=== PATIENT | female | born 1935 | race Caucasian/White ===

== ENCOUNTER 2021-04-03 19:22 | Inpatient (IN) | payer OTHER, MEDICAID, SELFPAY ==
[2021-04-03 20:10] VITALS: BP 217/103; PULSE 92; RESP 20; TEMP 36.8; O2SAT 96; BMI 26.5
--- NOTE | 2021-04-03 20:21 | DI.RAD.S_ITS ---
PROCEDURE: XR HIP W PEL IF DONE LT 2V INDICATIONS: suspected hip fracture TECHNIQUE: AP view of the pelvis and lateral view of the left hip. COMPARISON: None. FINDINGS: Bones: There is a minimally displaced intertrochanteric fracture of the left proximal femur with minimal lateral angulation. Degenerative changes are seen in the included lower lumbar spine with levoconvex curvature. Soft tissues: No suspicious soft tissue calcifications or masses. IMPRESSION: Minimally displaced intertrochanteric fracture of the left proximal femur. Dictated by: Misha Hannon M.D. on 04/03/2021 at 21:20 Approved by: Misha Hannon M.D. on 04/03/2021 at 21:21
--- NOTE | 2021-04-03 20:56 | DI.RAD.S_ITS ---
PROCEDURE: XR CHEST 1V INDICATIONS: pre op TECHNIQUE: One view of the chest was acquired. COMPARISON: None. FINDINGS: Surgical changes and devices: None. Lungs and pleura: Lungs are clear. No pleural effusions or pneumothorax. Mediastinum: Mediastinal contours appear normal. Heart size is normal. Aortic atherosclerotic calcifications are present. Bones and chest wall: No suspicious bony lesions. Overlying soft tissues appear unremarkable. IMPRESSION: No acute cardiopulmonary abnormality. Dictated by: Misha Hannon M.D. on 04/03/2021 at 21:21 Approved by: Misha Hannon M.D. on 04/03/2021 at 21:22
[2021-04-03] MEDS: HYDROMORPHONE 0.5 MG INJ IV (21:16)
[2021-04-03] MEDS: SODIUM CHLORIDE 0.9% 1,000 ML 150 ML IV (21:19)
[2021-04-03 21:20] LABS: Add Manual Diff / Slide Review NO; Basophils Absolute Auto 0 /uL (0-100); Basophils Percent Auto 0.2 % (0-2); Eosinophils Absolute Auto 0 /uL (0-450); Hematocrit 48.3 % (36-46); Hemoglobin 15.6 g/dL (12.0-16.0); Lymphocytes Absolute Auto 400 /uL (1100-4500); Lymphocytes Percent Auto 3.5 % (25-40); Mean Corpuscular HGB Conc 32.3 % (30-36); Mean Corpuscular Hemoglobin 29.4 PG (26-34); Mean Corpuscular Volume 91.1 fL (80-100); Monocytes Absolute Auto 900 /uL (0-900); Monocytes Percent Auto 7.8 % (3-14); Neutrophils Absolute Auto 10300 /uL (1500-7000); Neutrophils Percent Auto 88.5 % (50-75); Platelet Count 158 X10^3/uL (150-400); White Blood Cell Count 11.7 X10^3/uL (4.5-11.0)
[2021-04-03 21:42] LABS: Alanine Aminotransferase 25 IU/L (<35); Albumin 4.7 g/dL (3.5-5.0); Albumin Globulin Ratio 1.6 (1.0-2.8); Alkaline Phosphatase 92 U/L (38-126); Aspartate Aminotransferase 33 IU/L (14-36); Bilirubin Total 0.8 mg/dL (0.2-1.3); Blood Urea Nitrogen 30 mg/dL (7-17); Calcium 9.5 mg/dL (8.4-10.2); Carbon Dioxide 25 mmol/L (22-32); Chloride 106 mmol/L (98-107); Glucose 136 mg/dL (80-110); HEMOLYSIS < 15 (0-50); Potassium 4.5 mmol/L (3.4-5.1); Sodium 140 mmol/L (137-145); Total Protein 7.7 g/dL (6.3-8.2)
--- NOTE | 2021-04-03 22:00 | ED_ITS ---
HPI - Extremity Injury (Lower) General Chief Complaint: Extremity Injury, Lower Stated Complaint: hip pain Time Seen by Provider: 04/03/21 20:55 Source: patient and family Mode of arrival: Wheelchair Limitations: language barrier History of Present Illness HPI Narrative: 85-year-old lady with history of hypertension was picking apples today and ended up falling onto her left hip and presents with left hip pain. S he was able to get off of the ground an into a car and transport herself to the emergency room by private vehicle. She speaks Trinidadian and her granddaughter is acting as machine specialist. She has had no recent fevers cough cold chills. She has no abdominal pain headache recent diarrhea or dysuria. This was not a syncopal episodes and she feels that she has been in her usual state of health recently. Related Data Home Medications Medication Instructions Recorded Confirmed losartan 50 mg tablet 50 mg PO DAILY 04/04/21 04/04/21 Allergies Allergy/AdvReac Type Severity Reaction Status Date / Time No Known Drug Allergies Allergy Verified 04/03/21 20:10 Review of Systems Review of Systems Narrative: Remainder of complete review of systems is otherwise unremarkable except for that included in the HPI. Patient History Surgical History Hx of hernia repair Family History Mother Breast CA Father Medical history unknown Social History household members: family and children Smoking Status: Never smoker Smoking Status: Never smoker Substance Use Type: does not use Exam Narrative Exam Narrative: General: Healthy appearing, in no acute distress. Well- nourished well-developed HEENT: Moist mucous membranes, normal sclera with reactive pupils, Neck: supple Respiratory: Lungs are clear to auscultation, no wheezing no rales no rhonchi. Full and symmetrical air movement Cardiac: Regular rate and rhythm no murmurs no bruits Abdomen: Soft, nontender, good bowel tones, no flank pain Skin: Warm and dry, no rashes, no abrasions or contusions Neurologic: Able to move all extremities left leg is somewhat limited secondary to pain Extremities: well perfused, chronic venous stasis changes minimal edema. Left leg is foreshortened and internally rotated. Neurovascularly intact Psych: Cooperative, appropriate insight and affect Initial Vital Signs Initial Vital Signs: Vital Signs Temperature 98.3 F 04/03/21 20:10 Pulse Rate 92 H 04/03/21 20:10 Respiratory Rate 20 04/03/21 20:10 Blood Pressure 217/103 H 04/03/21 20:10 Pulse Oximetry 96 04/03/21 20:10 Course Orders Ordered: Acetaminophen (Acetaminophen 325 Mg Tablet) 650 mg PO Q6HR PRN PRN Reason: Fever/Mild Pain (1-3) Hydromorphone HCl (Hydromorphone 0.5 Mg Inj) 0.5 mg IV Q15MIN PRN PRN Reason: Pain, Last Admin: 04/03/21 21:16 Dose: 0.5 mg Documented by: CARLEE Sodium Chloride (Normal Saline 0.9%) 1,000 mls @ 100 mls/hr IV CONT [facility] Last Admin: 04/04/21 01:15 Dose: 100 mls/hr Documented by: HOA Morphine Sulfate (Morphine 2 Mg/Ml Inj) 2 mg IV Q3H PRN PRN Reason: Pain, Moderate (4-6) Naloxone HCl (Naloxone 0.4 Mg/Ml Vial) 0.2 mg IV Q2MIN PRN PRN Reason: Opiate Reversal Ondansetron HCl (Ondansetron 4 Mg/2 Ml Inj) 4 mg IV Q8HR PRN PRN Reason: Nausea And Vomiting Discontinued Medications Sodium Chloride (Normal Saline 0.9%) 1,000 mls @ 150 mls/hr IV CONT [facility] Last Admin: 04/03/21 21:19 Dose: 150 mls/hr Documented by: CARLEE Losartan Potassium (Losartan 50 Mg Tablet) 50 mg PO NOW ONE Stop: 04/03/21 23:02 Last Admin: 04/04/21 02:04 Dose: Not Given Documented by: HOA Vital Signs Vital signs: Vital Signs - 8 hr 04/03/21 20:10 Temperature 98.3 F Pulse Rate 92 H Respiratory Rate 20 Blood Pressure 217/103 H Pulse Oximetry 96 MDM - Extremity Injury (Lower) Lab Data Result diagrams: 04/04/21 04:40 04/04/21 04:40 Labs: Lab Results 04/03/21 04/03/21 04/03/21 Range/Units 21:10 21:10 21:10 WBC 11.7 H (4.5-11.0) X10^3/uL RBC 5.30 H (4.0-5.2) X10^6/uL Hgb 15.6 (12.0-16.0) g/dL Hct 48.3 H (36-46) % MCV 91.1 (80-100) fL MCH 29.4 (26-34) PG MCHC 32.3 (30-36) % RDW 14.0 (11.6-14.8) % Plt Count 158 (150-400) X10^3/uL Neut % (Auto) 88.5 H (50-75) % Lymph % (Auto) 3.5 L (25-40) % [place] % (Auto) 7.8 (3-14) % Eos % (Auto) 0.0 L (2-4) % Baso % (Auto) 0.2 (0-2) % Neut # (Auto) 76359 H (9047-3483) /uL Lymph # (Auto) 400 L (7820-1963) /uL [place] # (Auto) 900 (0-900) /uL Eos # (Auto) 0 (0-450) /uL Baso # (Auto) 0 (0-100) /uL Sodium 140 (137-145) mmol/L Potassium 4.5 (3.4-5.1) mmol/L Chloride 106 (98-107) mmol/L Carbon Dioxide 25 (22-32) mmol/L BUN 30 H (7-17) mg/dL Creatinine 1.00 (0.52-1.04) mg/dL Estimated GFR 53.0 L (>60) mL/min BUN/Creatinine Ratio 30.0 H (6-22) Glucose 136 H (80-110) mg/dL Calcium 9.5 (8.4-10.2) mg/dL Total Bilirubin 0.8 (0.2-1.3) mg/dL AST 33 (14-36) IU/L ALT 25 (<35) IU/L Alkaline Phosphatase 92 (38-126) U/L Total Creatine Kinase 60 (30-135) U/L CK-MB (CK-2) TNP CK-MB (CK-2) Rel Index TNP Troponin I < 0.012 (0.01-0.034) ng/mL Total Protein 7.7 (6.3-8.2) g/dL Albumin 4.7 (3.5-5.0) g/dL Globulin 3.0 (1.7-4.1) g/dL Albumin/Globulin Ratio 1.6 (1.0-2.8) SARS-CoV-2 (PCR) (Negative) 04/03/21 Range/Units 21:15 WBC (4.5-11.0) X10^3/uL RBC (4.0-5.2) X10^6/uL Hgb (12.0-16.0) g/dL Hct (36-46) % MCV (80-100) fL MCH (26-34) PG MCHC (30-36) % RDW (11.6-14.8) % Plt Count (150-400) X10^3/uL Neut % (Auto) (50-75) % Lymph % (Auto) (25-40) % [place] % (Auto) (3-14) % Eos % (Auto) (2-4) % Baso % (Auto) (0-2) % Neut # (Auto) (2857-4652) /uL Lymph # (Auto) (0398-1077) /uL [place] # (Auto) (0-900) /uL Eos # (Auto) (0-450) /uL Baso # (Auto) (0-100) /uL Sodium (137-145) mmol/L Potassium (3.4-5.1) mmol/L Chloride (98-107) mmol/L Carbon Dioxide (22-32) mmol/L BUN (7-17) mg/dL Creatinine (0.52-1.04) mg/dL Estimated GFR (>60) mL/min BUN/Creatinine Ratio (6-22) Glucose (80-110) mg/dL Calcium (8.4-10.2) mg/dL Total Bilirubin (0.2-1.3) mg/dL AST (14-36) IU/L ALT (<35) IU/L Alkaline Phosphatase (38-126) U/L Total Creatine Kinase (30-135) U/L CK-MB (CK-2) CK-MB (CK-2) Rel Index Troponin I (0.01-0.034) ng/mL Total Protein (6.3-8.2) g/dL Albumin (3.5-5.0) g/dL Globulin (1.7-4.1) g/dL Albumin/Globulin Ratio (1.0-2.8) SARS-CoV-2 (PCR) Negative (Negative) Imaging Data XR hip: Radiologist's Impression: FINDINGS: Bones: There is a minimally displaced intertrochanteric fracture of the left proximal femur with minimal lateral angulation. Degenerative changes are seen in the included lower lumbar spine with levoconvex curvature. Soft tissues: No suspicious soft tissue calcifications or masses. IMPRESSION: Minimally displaced intertrochanteric fracture of the left proximal femur. Dictated by: Misha Hannon M.D. on 04/03/2021 at 21:20 MDM Narrative Medical decision making narrative: 85-year-old woman with a left intratrochanteric fracture will need admission by the hospitalist service. Reviewed care with Dr. Bhatt, orthopedic surgeon. At 10:00 p.m.. She requests that she is NPO after midnight and they will plan surgical intervention tomorrow. 1030pm Sophia Bruner, hospitalist SARINA is down to evaluate. Discharge Plan Departure Patient Disposition: Admitted As Inpatient Clinical Impression: Closed hip fracture Qualifiers: Encounter type: initial encounter Laterality: left Qualified Code(s): S72.002A - Fracture of unspecified part of neck of left femur, initial encounter for closed fracture Fall Qualifiers: Encounter type: initial encounter Qualified Code(s): W19.XXXA - Unspecified fall, initial encounter Admit Date/Time: 04/03/21 22:29 Admit Provider: Lucie Bruner
[2021-04-03 22:12] LABS: COVID19 - ADMIT (NP swab/PCR) Negative (Negative)
--- NOTE | 2021-04-03 22:53 | PM.HP.1 ---
History of Present Illness History of Present Illness Date Patient Seen: 04/03/21 Time Patient Seen: 22:45 Chief complaint: hip pain Narrative: Shiraz Vizcaino is an 85-year-old Macedonian only speaking female with essential hypertension and was apparently in her usual state of health when she fell outside in her yard. Her granddaughter Vida Flores is translating for the patient. She stated that the patient was standing on a grassy slope and was reaching for an apple off of 1 of the trees and the yard and apparently fell. She did not hit her head nor her ribs. She denies dizziness, swallowing problems, headaches, chest pain, nausea and vomiting, diarrhea or constipation. She does endorse having chronic urinary urgency, tingling in her hands and feet and bed circulation of her legs causing swelling occasionally. In the emergency department she was found to have a left-sided closed intertrochanteric nondisplaced fracture. Chest x-ray was negative. Patient is afebrile, blood pressure 217/103, heart rate 92, respiratory rate 20, oxygen saturation 96% on room air, she weighs 68 kg with a BMI of 26.6. Her WBC is slightly elevated at 11.7, RBC 5.3, hemoglobin 15.6, hematocrit 48.3, platelet count 158, sodium is 140, potassium 4.5, chloride 106, CO2 25, BUN 30, creatinine 1.0 with a GFR of 53, glucose 136, liver enzymes are within normal limits, COVID 19 PCR is negative. I have ordered a troponin and a UA both of which are pending. Patient History Surgical History (Updated 04/03/21 @ 23:27 by SARINA Goddard) Hx of hernia repair Family & Social History Family History (Updated 04/03/21 @ 23:29 by SARINA Goddard) Mother Breast CA Father Medical history unknown Safety & Behavioral: Feels Safe in Current Yes Environment Been Physically Hurt or No Threatened By a Person Tobacco & Substance use: Smoking Status Never smoker Substance Use Type does not use Meds Home Medications and Allergies Allergies Allergy/AdvReac Type Severity Reaction Status Date / Time No Known Drug Allergies Allergy Verified 04/03/21 20:10 Review of Systems Review of Systems ROS: Yes All systems reviewed with the patient and are negative except as otherwise documented Exam Vital Signs (past 8 hours): - 04/03/21 20:10 Temperature 98.3 F Pulse Rate 92 H Respiratory Rate 20 Blood Pressure 217/103 H Pulse Oximetry 96 Oxygen Delivery Method Room Air Narrative Exam Narrative: Gen: Alert, oriented, well-developed 85 y.o. female, busily chatting in Macedonian to a relative on the phone HEENT: normocephalic, atraumatic, conjunctiva clear, sclera non-icteric, oral mucosa pink and moist Neck: supple, full ROM, no JVD, trachea is midline Resp: Lungs CTA, non-labored breathing CV: RRR, no murmur or rubs Abd: soft, non-tender, normoactive BTs Skin: spider varicosities on both legs, no sweling and in fact appears dry, no lesions or rashes, dry and intact Neuro: Alert and oriented X 4 w/no focal deficits. Speech clear and coherent. Extremities: moves all 4 extremities, is ambulatory, negative Sourav?s sign Psyche: pleasant, normal mood and affect. Objective ECG Impression: Reports ST and T wave abnormalities, consider lateral ischemia. No prior EKGs to compare. Labs Result Diagrams: 04/03/21 21:10 04/03/21 21:10 Labs: Laboratory Results - last 24 hr 04/03/21 04/03/21 04/03/21 21:10 21:10 21:15 WBC 11.7 H RBC 5.30 H Hgb 15.6 Hct 48.3 H MCV 91.1 MCH 29.4 MCHC 32.3 RDW 14.0 Plt Count 158 Neut % (Auto) 88.5 H Lymph % (Auto) 3.5 L [place] % (Auto) 7.8 Eos % (Auto) 0.0 L Baso % (Auto) 0.2 Neut # (Auto) 08000 H Lymph # (Auto) 400 L [place] # (Auto) 900 Eos # (Auto) 0 Baso # (Auto) 0 Sodium 140 Potassium 4.5 Chloride 106 Carbon Dioxide 25 BUN 30 H Creatinine 1.00 Estimated GFR 53.0 L BUN/Creatinine Ratio 30.0 H Glucose 136 H Calcium 9.5 Total Bilirubin 0.8 AST 33 ALT 25 Alkaline Phosphatase 92 Total Protein 7.7 Albumin 4.7 Globulin 3.0 Albumin/Globulin Ratio 1.6 SARS-CoV-2 (PCR) Negative Assessment & Plan Assessment & Plan narrative: Shiraz Vizcaino is admitted as an inpatient for surgical repair of a closed left intertrochanteric hip fracture. Dr. Bhatt has been notified, will see the patient in the morning and anticipates taking her into the OR sometime later tomorrow. 1. Closed left intertrochanteric hip fracture, acute, present on admission Patient to go to the OR tomorrow for surgical repair NPO after midnight IV morphine and Tylenol for pain Type and screen ordered as well as a.m. labs 2. Essential hypertension, poorly controlled likely due to pain, present on admission Patient reportedly takes losartan 50 mg and will be provided 1 dose tonight and in the case it is not controlled will consider 1 dose of Lopressor VTE Prophylaxis: Wells risk score 0 [X] Bilateral SCDs Patient is admitted to the inpatient service due to the severity of disease, risks of further disease progression and this stay is expected to exceed 2 midnights. FEN: IV fluids: NS at 100 ml/hour, diet: NPO after midnight, labs: CBC, C/BMP, liver enzymes, Mag, type and screen Consultants Dr. Walters, Orthopedic Surgery, care and involvement in the patient?s care is appreciated. Dispo: Unknown at this time Code status: Full Code as discussed with the patient who identifies granddaughter, Ariana Flores as her surrogate and POA. COVID-19 COVID-19 status: Negative Result date/Date tested (Pos, Neg/Pending): 04/03/21 Scores Wells' Criteria for PE Clinical signs and symptoms of DVT: No PE is #1 Dx or equally likely: No Heart rate > 100: No Immobilization at least 3 days or surg in previous 4 weeks: No History of PE or DVT: No Hemoptysis: No Malignancy w/Treatment within 6 months or palliative: No Wells' PE Score total: 0 Quality VTE Deep Vein Thrombosis/Pulmonary Embolism Present on Admission: No MIPS - Admit I confirm the patient?s Advance Care Plan is present, Code status is documented, Surrogate decision maker is in patient?s record [If Yes, STOP here]: Yes MIPS - DC The patient has current or prior documentation of left ventricular ejection fraction (LVEF) less than 40%, or moderate or severely depressed left ventricular systolic function.: No
[2021-04-03 23:28] LABS: Creatine Kinase 60 U/L (30-135)
[2021-04-03 23:41] LABS: Troponin I < 0.012 ng/mL (0.01-0.034)
[2021-04-03 23:48] LABS: Bacteria Urine Many (>30); Culture Indicated Urine Specimen Cultured; RBC Urine 1-5/HPF (0-5/HPF); Squamous Epithelial Cell Urine 1-5 /HPF (0-5/HPF); WBC Urine 1-5/HPF (0-5/HPF)
[2021-04-03 23:50] VITALS: BP 183/85; PULSE 87; RESP 12; O2SAT 98
[2021-04-04] VITALS (22 sets, daily range): BP systolic 130–187; BP diastolic 66–96; PULSE 68–87; RESP 10–94; TEMP 36.1–37.4; O2SAT 17–98; BMI 28.0
--- NOTE | 2021-04-04 | DI.RAD.S_ITS ---
PROCEDURE: XR HIP W PEL IF DONE LT 2V INDICATIONS: LEFT HIP FIX TECHNIQUE: 2 view(s) of the hip acquired. COMPARISON: [facility], CR, XR HIP W PEL IF DONE LT 2V, 04/03/2021, 20:37. FINDINGS: Bones: 3 fluoroscopic images demonstrate ORIF of a trochanteric fracture. with hardware components in expected positions. The hip joint appears congruent. The visualized bony structures appear intact. Soft tissues: Overlying postoperative changes are noted. No suspicious soft tissue densities. IMPRESSION: Operative fluoroscopy utilized during ORIF of a trochanteric fracture. Dictated by: Dionte Bell M.D. on 04/04/2021 at 20:59 Approved by: Dionte Bell M.D. on 04/04/2021 at 21:00
--- NOTE | 2021-04-04 00:45 | PC.ADMIT ---
621 [facility] Admission Note: Patient arrived to the unit via stretcher from the ED at 0012. Patient is A/O, on room air, and is not complaining of pain as long as she isn't moving. Patient does not speak Italian, only Albanian so interpretation is required. ED SHELF DRIER OPERATOR had a translation program on a phone she was using to speak to the patient at admission to the unit. This RN used the units language line to call and have a caterpillar mechanic. Patient did have home medications with her that were locked in the nurses cabinet. Patient was oriented to call light, room, with belongings and call light left within reach. The patient,Shiraz Vizcaino,85 y/o, was given written information regarding hospital policies, unit procedures and contact persons. Patient's smoking status: Never smoker. Vital Signs - 8 hr 04/03/21 23:50 04/04/21 00:12 04/04/21 02:22 Temperature 97.4 F L Pulse Rate 87 87 Respiratory Rate 12 20 Blood Pressure 183/85 H 161/85 H Pulse Oximetry 98 97 97 04/04/21 04:14 Temperature 97.8 F Pulse Rate 77 Respiratory Rate 20 Blood Pressure 158/81 H Pulse Oximetry 98
[2021-04-04] MEDS: SODIUM CHLORIDE 0.9% 1,000 ML 100 ML IV ×2 (01:15→13:13)
--- NOTE | 2021-04-04 04:26 | PC.NURSE ---
Addendum entered by Amisha Miller R.N. 04/04/21 06:58: Dr. Walters saw the patient at 0640 and verbal orders were given that patient can eat breakfast but needs to be NPO at 0830. Orders confirmed and read back. No other orders at this time. Original Note: When SENIOR RESEARCH ASSOCIATE entered the room at 0412 and was asking the patient how she was, patient was describing chest pain. This RN used the cross tie turner phone to call the cross tie turner to assess the patient. Patient stated that when she had the SCD's on, there was a pain in her heart area but now that they are off the pain is gone. The patient denied any SOB, or difficulty breathing. VS were BP:158/81, AZ: 77, RR: 20, Temp: 97.8, O2 Sat 98% on RA. Provider SARINA Burner, notified at 0423, telephone orders were given for a stat EKG and troponin level. RT notified at 0424 and Ross in the lab at 0425. No other orders at this time.
[2021-04-04 06:32] LABS: Add Manual Diff / Slide Review NO; Alanine Aminotransferase 19 IU/L (<35); Albumin 3.5 g/dL (3.5-5.0); Albumin Globulin Ratio 1.3 (1.0-2.8); Alkaline Phosphatase 67 U/L (38-126); Aspartate Aminotransferase 27 IU/L (14-36); BUN Creatinine Ratio 28.2 (6-22); Basophils Absolute Auto 0 /uL (0-100); Basophils Percent Auto 0.4 % (0-2); Bilirubin Unconjugated 0.9 mg/dL (0.0-1.1); Blood Urea Nitrogen 24 mg/dL (7-17); Calcium 8.5 mg/dL (8.4-10.2); Carbon Dioxide 24 mmol/L (22-32); Chloride 110 mmol/L (98-107); Creatine Kinase 50 U/L (30-135); Eosinophils Absolute Auto 0 /uL (0-450); Eosinophils Percent Auto 0.4 % (2-4); Estimated Glomerular Filt Rate > 60.0 mL/min (>60); Globulin 2.6 g/dL (1.7-4.1); Glucose 118 mg/dL (80-110); HEMOLYSIS < 15 (0-50); Hematocrit 42.5 % (36-46); Hemoglobin 13.8 g/dL (12.0-16.0); Lymphocytes Absolute Auto 800 /uL (1100-4500); Lymphocytes Percent Auto 13.4 % (25-40); Mean Corpuscular HGB Conc 32.4 % (30-36); Mean Corpuscular Hemoglobin 29.5 PG (26-34); Monocytes Absolute Auto 700 /uL (0-900); Monocytes Percent Auto 11.4 % (3-14); Neutrophils Absolute Auto 4600 /uL (1500-7000); Neutrophils Percent Auto 74.4 % (50-75); Platelet Count 145 X10^3/uL (150-400); Potassium 4.2 mmol/L (3.4-5.1); Red Blood Cell Count 4.68 X10^6/uL (4.0-5.2); Sodium 139 mmol/L (137-145); Total Protein 6.1 g/dL (6.3-8.2); Troponin I 0.013 ng/mL (0.01-0.034); White Blood Cell Count 6.2 X10^3/uL (4.5-11.0)
--- NOTE | 2021-04-04 07:22 | PM.CN ---
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 PMHX HTN, and takes aspirin. lives [facility] - other family in [place]. denies other injuries. no LOC. community ambulator Meds Home Medications and Allergies Home Medications Medication Instructions Recorded Confirmed Type losartan 50 mg tablet 50 mg PO DAILY 04/04/21 04/04/21 History Allergies Allergy/AdvReac Type Severity Reaction Status Date / Time No Known Drug Allergies Allergy Verified 04/03/21 20:10 Review of Systems Review of Systems Narrative: HTN had some CP on arrival to ER-- resolved. + l hip pain otherwise negative Exam Vital Signs (past 8 hours): - 04/03/21 23:50 04/04/21 00:12 04/04/21 02:22 Temperature 97.4 F L Pulse Rate 87 87 Respiratory Rate 12 20 Blood Pressure 183/85 H 161/85 H Pulse Oximetry 98 97 97 04/04/21 04:14 Temperature 97.8 F Pulse Rate 77 Respiratory Rate 20 Blood Pressure 158/81 H Pulse Oximetry 98 Oxygen Delivery Method Room Air Oxygen Flow Rate 0 Narrative Exam Narrative: NAD in bed. LCTAB, RRR, NCAT MSK moves all upper extermities. LLE: ttp L hip. no gross deformity. wiggle toes. calf soft. palp DP. SILT. RLE: full rom, no ttp. DF/PF intact hung in place Objective Labs Result Diagrams: 04/04/21 04:40 04/04/21 04:40 Labs: Laboratory Results - last 24 hr 04/03/21 04/03/21 04/03/21 21:10 21:10 21:10 WBC 11.7 H RBC 5.30 H Hgb 15.6 Hct 48.3 H MCV 91.1 MCH 29.4 MCHC 32.3 RDW 14.0 Plt Count 158 Neut % (Auto) 88.5 H Lymph % (Auto) 3.5 L [place] % (Auto) 7.8 Eos % (Auto) 0.0 L Baso % (Auto) 0.2 Neut # (Auto) 94933 H Lymph # (Auto) 400 L [place] # (Auto) 900 Eos # (Auto) 0 Baso # (Auto) 0 Sodium 140 Potassium 4.5 Chloride 106 Carbon Dioxide 25 BUN 30 H Creatinine 1.00 Estimated GFR 53.0 L BUN/Creatinine Ratio 30.0 H Glucose 136 H Calcium 9.5 Magnesium Total Bilirubin 0.8 Conjugated Bilirubin Unconjugated Bilirubin AST 33 ALT 25 Alkaline Phosphatase 92 Total Creatine Kinase 60 CK-MB (CK-2) TNP CK-MB (CK-2) Rel Index TNP Troponin I < 0.012 Total Protein 7.7 Albumin 4.7 Globulin 3.0 Albumin/Globulin Ratio 1.6 Urine RBC Urine WBC Ur Squamous Epith Cells Urine Bacteria Ur Culture Indicated? SARS-CoV-2 (PCR) 04/03/21 04/03/21 04/04/21 21:15 23:28 04:40 WBC 6.2 RBC 4.68 Hgb 13.8 Hct 42.5 MCV 91.0 MCH 29.5 MCHC 32.4 RDW 14.0 Plt Count 145 L Neut % (Auto) 74.4 Lymph % (Auto) 13.4 L [place] % (Auto) 11.4 Eos % (Auto) 0.4 L Baso % (Auto) 0.4 Neut # (Auto) 4600 Lymph # (Auto) 800 L [place] # (Auto) 700 Eos # (Auto) 0 Baso # (Auto) 0 Sodium Potassium Chloride Carbon Dioxide BUN Creatinine Estimated GFR BUN/Creatinine Ratio Glucose Calcium Magnesium Total Bilirubin Conjugated Bilirubin Unconjugated Bilirubin AST ALT Alkaline Phosphatase Total Creatine Kinase CK-MB (CK-2) CK-MB (CK-2) Rel Index Troponin I Total Protein Albumin Globulin Albumin/Globulin Ratio Urine RBC 1-5/hpf Urine WBC 1-5/hpf Ur Squamous Epith Cells 1-5 /hpf Urine Bacteria Many (>30) H Ur Culture Indicated? Specimen cultured SARS-CoV-2 (PCR) Negative 04/04/21 04/04/21 04:40 04:40 WBC RBC Hgb Hct MCV MCH MCHC RDW Plt Count Neut % (Auto) Lymph % (Auto) [place] % (Auto) Eos % (Auto) Baso % (Auto) Neut # (Auto) Lymph # (Auto) [place] # (Auto) Eos # (Auto) Baso # (Auto) Sodium 139 Potassium 4.2 Chloride 110 H Carbon Dioxide 24 BUN 24 H Creatinine 0.85 Estimated GFR > 60.0 BUN/Creatinine Ratio 28.2 H Glucose 118 H Calcium 8.5 Magnesium 2.0 Total Bilirubin 1.0 Conjugated Bilirubin 0.0 Unconjugated Bilirubin 0.9 AST 27 ALT 19 Alkaline Phosphatase 67 Total Creatine Kinase 50 CK-MB (CK-2) TNP CK-MB (CK-2) Rel Index TNP Troponin I 0.013 Total Protein 6.1 L Albumin 3.5 Globulin 2.6 Albumin/Globulin Ratio 1.3 Urine RBC Urine WBC Ur Squamous Epith Cells Urine Bacteria Ur Culture Indicated? 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 indication for surgery to reduced morbidity and mortality from this injury. fixation will allow immediate WB and reduce risks of being bed bound. The risks and benefits of the procedure have been discussed with the patient even opportunity to ask questions. The risks of surgery include but are not limited to infection, malunion, nonunion, persistence of pain, damage to nerves and blood vessels, posttraumatic arthritis, DVT, PE, cardiopulmonary complications and . The patient expressed a thorough understanding of the risks and benefits of surgery and has elected to proceed. Consent was signed today. the patient has signed and consented for surgery. COVID-19 COVID-19 status: Negative Time Spent With Patient Time with patient: 15-24 minutes
--- NOTE | 2021-04-04 12:15 | CM.DANOTE ---
DCP: Case received, EMR reviewed. Checked on patient, she was awake, pleasant, but does not speak any Comoran. Was able to get further information from patient's daughter, Ivette, who is currently in [place]. DCP assessment was completed based upon information that was readily available. Patient is an 85 year old female who admitted yesterday evening to the care of the hospitalist team. PCP: Unknown at this time. Payer: confirmed: Medicaid. Patient came to the hospital via private vehicle secondary to having a ground level fall at home. According to notes, patient was out picking apples, and slipped and fell. She was able to get up and with encouragement from family, did get into the car and came to the hospital. She was diagnoses with displaced intertrochangeric fracture of the left femur. She is to be having surgery today. Patient lives with her grand daughter, Ariana Rodriguez. She does not speak any Comoran, speaks Argentine. Was able to get in touch with Ivette Fuchs, who is currently in [place]. She confirmed that patient is independent at her baseline. Did discuss discharge planning with daughter. She indicated, my mom most likely will not go to a skilled facility, since she has the language barrier as well. Did discuss home health, which daughter indicated, may be better for her. Daughter also had some concerns about the type of anesthesia that they are using on their mom, with concerns about a reaction. Asked nurse, Evita, to give her a call. P: DCP to continue to follow. Plan is for patient to have surgery today. After surgery, she will work with P.T. and will see how she does. Lilly Triana RN/Supervisor [employer]
[2021-04-04] MEDS: LOSARTAN 50 MG TABLET PO (13:18)
--- NOTE | 2021-04-04 15:29 | PC.NURSE ---
Pt French speaking only. Denies wanting pain medication with translation antonio. Kept NPO since prior to midnight throughout the day. BP elevated this a.m and MD notified. Received orders to give home dose of losartan. Daughter and Grandaughter called today and CM communicated with daughter. Daughter expressed concern of anesthesia vs epidural RN notified anesthesia. Per coordinator will call Ivette to discuss anesthesia. Pt remains calm and alert throughout the day on a tablet. Continuous monitoring. IVF NS @ 100ml /hr. Meza in place with 650 cc output.
--- NOTE | 2021-04-04 18:15 | PC.NURSE ---
Addendum entered by Su Ernst R.N. 04/04/21 22:12: Pt returned from PACU @ 2130 Awake & alert. IVF infusing as per orders. Gauze Dsg to left hip CDI Meza cath patent clear urine. Call light w/in reach, bed alarm on for pt safety. Continue w/plan of care. Addendum entered by Su Ernst R.N. 04/04/21 18:48: Pt escorted to surgery sweet by OR staff. RN called daughter to inform her. Original Note: Pt awaiting surgery later this evening. SpO2 97% RA IVF NS @ 100 infusing into LAC via pump w/o incidence. Tele showing NSR per ICU staff. Meza cath patent clear xiao urine. Call light w/in reach, bed alarm on for pt safety.
[2021-04-04] MEDS: CEFAZOLIN 1 GM VIAL 2 GM IV (19:10)
[2021-04-04] MEDS: TRANEXAMIC ACID 1,000 MG in SODIUM CHLORIDE 0.9% 100 ML 200 ML IV (19:15)
--- NOTE | 2021-04-04 19:40 | SUR.OPER ---
Supine on padded [place] table with bilateral legs secured in padded positioning boots and suspended in positioning spars, operative leg in traction per surgeon. Head on one pillow. Arm on non-operative side secured on padded armboard <90 degrees abduction. Arm on operative side padded and resting across chest then secured with tape over sheet. Padded perineal post in place per surgeon.
--- NOTE | 2021-04-04 19:55 | PM.PN.1 ---
Subjective Subjective Interval history: The patient is an 85-year-old Citizen Of [place]-speaking female who presented to the hospital following a fall. Patient suffered a left hip fracture. She will be undergoing surgery this evening. Per her daughter the patient does have pain at rest. She is somewhat anxious about her impending surgery. Patient denies any shortness of breath. Exam Vital Signs (past 8 hours): - 04/04/21 12:09 04/04/21 13:18 04/04/21 15:00 Temperature 97.6 F Pulse Rate 80 80 Respiratory Rate 16 Blood Pressure 187/96 H 187/96 H Pulse Oximetry 95 97 04/04/21 15:25 Temperature 97.8 F Pulse Rate 83 Respiratory Rate 18 Blood Pressure 166/92 H Pulse Oximetry Oxygen Delivery Method Room Air Oxygen Flow Rate 0 Narrative Exam Narrative: Pleasant female lying in bed who appears comfortable Resp Other: Lungs clear to auscultation Cardio Other: Cardiac exam: Regular rate and rhythm normal S1-S2 GI Other: Abdomen: Soft nontender nondistended Skin Other: Left leg with chronic venous stasis changes Extrem Other: Left leg internally rotated Objective Labs Result Diagrams: 04/04/21 04:40 04/04/21 04:40 Labs: Laboratory Results - last 24 hr 04/03/21 04/03/21 04/03/21 21:10 21:10 21:10 WBC 11.7 H RBC 5.30 H Hgb 15.6 Hct 48.3 H MCV 91.1 MCH 29.4 MCHC 32.3 RDW 14.0 Plt Count 158 Neut % (Auto) 88.5 H Lymph % (Auto) 3.5 L [place] % (Auto) 7.8 Eos % (Auto) 0.0 L Baso % (Auto) 0.2 Neut # (Auto) 75288 H Lymph # (Auto) 400 L [place] # (Auto) 900 Eos # (Auto) 0 Baso # (Auto) 0 Sodium 140 Potassium 4.5 Chloride 106 Carbon Dioxide 25 BUN 30 H Creatinine 1.00 Estimated GFR 53.0 L BUN/Creatinine Ratio 30.0 H Glucose 136 H Calcium 9.5 Magnesium Total Bilirubin 0.8 Conjugated Bilirubin Unconjugated Bilirubin AST 33 ALT 25 Alkaline Phosphatase 92 Total Creatine Kinase 60 CK-MB (CK-2) TNP CK-MB (CK-2) Rel Index TNP Troponin I < 0.012 Total Protein 7.7 Albumin 4.7 Globulin 3.0 Albumin/Globulin Ratio 1.6 Urine RBC Urine WBC Ur Squamous Epith Cells Urine Bacteria Ur Culture Indicated? SARS-CoV-2 (PCR) Blood Type Antibody Screen 04/03/21 04/03/21 04/04/21 21:15 23:28 04:40 WBC 6.2 RBC 4.68 Hgb 13.8 Hct 42.5 MCV 91.0 MCH 29.5 MCHC 32.4 RDW 14.0 Plt Count 145 L Neut % (Auto) 74.4 Lymph % (Auto) 13.4 L [place] % (Auto) 11.4 Eos % (Auto) 0.4 L Baso % (Auto) 0.4 Neut # (Auto) 4600 Lymph # (Auto) 800 L [place] # (Auto) 700 Eos # (Auto) 0 Baso # (Auto) 0 Sodium Potassium Chloride Carbon Dioxide BUN Creatinine Estimated GFR BUN/Creatinine Ratio Glucose Calcium Magnesium Total Bilirubin Conjugated Bilirubin Unconjugated Bilirubin AST ALT Alkaline Phosphatase Total Creatine Kinase CK-MB (CK-2) CK-MB (CK-2) Rel Index Troponin I Total Protein Albumin Globulin Albumin/Globulin Ratio Urine RBC 1-5/hpf Urine WBC 1-5/hpf Ur Squamous Epith Cells 1-5 /hpf Urine Bacteria Many (>30) H Ur Culture Indicated? Specimen cultured SARS-CoV-2 (PCR) Negative Blood Type Antibody Screen 04/04/21 04/04/21 04/04/21 04:40 04:40 04:40 WBC RBC Hgb Hct MCV MCH MCHC RDW Plt Count Neut % (Auto) Lymph % (Auto) [place] % (Auto) Eos % (Auto) Baso % (Auto) Neut # (Auto) Lymph # (Auto) [place] # (Auto) Eos # (Auto) Baso # (Auto) Sodium 139 Potassium 4.2 Chloride 110 H Carbon Dioxide 24 BUN 24 H Creatinine 0.85 Estimated GFR > 60.0 BUN/Creatinine Ratio 28.2 H Glucose 118 H Calcium 8.5 Magnesium 2.0 Total Bilirubin 1.0 Conjugated Bilirubin 0.0 Unconjugated Bilirubin 0.9 AST 27 ALT 19 Alkaline Phosphatase 67 Total Creatine Kinase 50 CK-MB (CK-2) TNP CK-MB (CK-2) Rel Index TNP Troponin I 0.013 Total Protein 6.1 L Albumin 3.5 Globulin 2.6 Albumin/Globulin Ratio 1.3 Urine RBC Urine WBC Ur Squamous Epith Cells Urine Bacteria Ur Culture Indicated? SARS-CoV-2 (PCR) Blood Type O Positive Antibody Screen Negative PFSH Surgical History Hx of hernia repair Family History Mother Breast CA Father Medical history unknown Social History household members: family and children Smoking Status: Never smoker Assessment & Plan Assessment & Plan narrative: Shiraz Vizcaino is admitted as an inpatient for surgical repair of a closed left intertrochanteric hip fracture.? Dr. Bhatt has been notified, will see the patient in the morning and anticipates taking her into the OR sometime later tomorrow. 1.? Closed left intertrochanteric hip fracture, acute, present on admission Patient to go to the OR tomorrow for surgical repair NPO after midnight, patient to proceed to surgery tonight IV morphine and Tylenol for pain Type and screen ordered as well as a.m. labs 2. Essential hypertension, poorly controlled likely due to pain, present on admission Patient reportedly takes losartan 50 mg and will be provided 1 dose tonight and in the case it is not controlled will consider 1 dose of Lopressor blood pressure poorly controlled, will start amlodipine 5 mg daily 3. DVT prophylaxis per ortho Time Spent With Patient Critical Care time: I spent a total of [] minutes of critical care time on this patient's care today; this time is exclusive of procedural time. Quality VTE Deep Vein Thrombosis/Pulmonary Embolism Present on Admission: No
--- NOTE | 2021-04-04 20:54 | P.OP_ITS ---
Operative Date/Time/Diagnoses Date of procedure: 04/04/21 Time of procedure: 19:30 Pre-op diagnosis: Left intertrochanteric hip fracture S72.142 Left pathological hip fracture due to osteoporosis M80.059A Post-op diagnosis: same Procedure & Clinicians Procedure: Intramedullary nailing left intertrochanteric hip fracture CPT code 72438 Same procedure as scheduled: Yes Indications: The patient sustained a left intertrochanteric hip fracture and was indicated for operative fixation. The risks, benefits, and alternatives of procedure were discussed at length a telephone [place] assessment nurse practitioner was utilized for the duration of the interaction. These included bleeding, infection, damage to nerves, pain, malunion, nonunion, blood clots, pulmonary embolism and cardiovascular risks associated with general anesthesia. Consent was signed. Surgeon: Lola Walters Click Yes if Unassisted: Yes Anesthesia Type: Spinal Operative Notes Findings: There was a left intertrochanteric hip fracture. This was reduced and internal fixation was performed with a 11.5 x 18 nail Closure Type: primary Specimen(s): none sent Prosthetic devices, grafts, tissues, transplants, or devices: Calabrese and nephew Intertan short cephalomedullary nail 11.5 x 18 nail and 90/85 scres with 30mm distal locking screw Estimated Blood Loss (mL): 100 Blood products transfused: none Tourniquet time (min): 0 Procedure in detail: The patient was seen, and site of surgery marked in the preoperative area. This was the left hip. The patient was then brought to the operating room and spinal anesthesia was administered. Patient was then placed on the operative table. The patient was positioned on the fracture table in the standard fashion with a well-padded boots and a padded peroneal post. A formal time-out was called to confirm the patient's side and site of surgery, administration of preoperative antibiotics. All personnel agreed. The operative leg was then gently manipulated under fluoroscopic guidance to obtain a closed reduction near anatomic alignment. At this point, the operative extremity was prepped and draped in the standard sterile manner. A guidewire was placed percutaneously, and the starting point obtained. A small incision was made over the guidewire. An opening drill was inserted to the level of lesser trochanter. 11.5 x 18 mm nail was selected this was then placed across the fracture however was noted to be tight at the shaft therefore the nail was then removed the ball- tip wire was placed and reaming was undertaken. The ball-tip guidewire was then passed and confirmed to be within the canal distally on the biplanar fluoroscopic imaging. Canal was reamed with a 10, 11 12 12.5 and 13 mm reamers and then the nail was repassed without difficulty. The nail was then advanced to the proper depth and rotation the guide for the cephalomedullary screws was inserted. An incision was made for this and the guide placed to the bone. A guidewire was placed to the proper depth and confirmed on AP and lateral imaging. The tip apex distance was evaluated and appropriate. Next the outer cortex was drilled for the interlocking screw and the anti rotation bar was placed. The cephalomedullary screw length was measured off the drill. This measured 95 so A 90 mm lag screw was selected in the corresponding interlocking compression screw. The guidewire was then overd rilled and a lag screw placed. The anti rotation bar was removed and then our locking compression screws placed and confirmed on biplanar fluoroscopy. The integrated compression screw was tightened. Attention was turned to the distal interlock screw, this was placed through the guide and a 30 mm screw was utilized. Fluoro AP and lateral images were captured in the OR confirming alignment and hardware placement. Wounds were irrigated and closed in layers with 2-0 Vicryl and marylin in the skin. Sterile dressings were applied. There no immediate complications noted. The surgical counts were correct. The patient tolerated the procedure well and was taken to the recovery room. Complications: none Post-operative Condition: stable Disposition: PACU Plan for aftercare: Patient will be weightbear as tolerated on the left lower extremity. For DVT prophylaxis she will use SCDs on the floor and Lovenox. She will need to be discharged with 4 weeks a total of Lovenox 40 mg subcutaneous injection daily (28 days total). She will follow-up in 2 weeks in Orthopedic Clinic for repeat x-rays and staple removal.
[2021-04-04] MEDS: ACETAMINOPHEN 325 MG TABLET 650 MG PO (21:08)
[2021-04-04] MEDS: LACTATED RINGERS 1,000 ML 42 ML IV (21:21)
[2021-04-04] MEDS: OXYCODONE IR 5 MG TABLET PO (21:24)
--- NOTE | 2021-04-04 21:42 | SUR.PHASEI ---
PT TRANSFERRED TO ROOM 218 IN BED ON 2L OXYGEN WITH THIS RN. SBAR UPDATE REPORT AT BEDSIDE TO JARRET RN. BED IN LOW POSITION, CALL LIGHT IN REACH. wARM BLANKET PRIOR TO TRANSFER. COUGH AND DEEP BREATH DONE BY DEMONSTRATION WITH PT RETURNING DEMO.
[2021-04-05] VITALS (11 sets, daily range): BP systolic 130–161; BP diastolic 61–88; PULSE 76–102; RESP 16–20; TEMP 36.4–37.1; O2SAT 92–97
[2021-04-05] MEDS: CEFAZOLIN 1 GM VIAL 2 GM IV ×2 (02:55→11:49)
[2021-04-05 08:44] LABS: Hematocrit 40.7 % (36-46); Hemoglobin 13.3 g/dL (12.0-16.0); Mean Corpuscular HGB Conc 32.6 % (30-36); Mean Corpuscular Hemoglobin 29.9 PG (26-34); Mean Corpuscular Volume 91.6 fL (80-100); Platelet Count 125 X10^3/uL (150-400); Red Blood Cell Count 4.44 X10^6/uL (4.0-5.2); Red Cell Distribution Width 13.7 % (11.6-14.8); White Blood Cell Count 6.1 X10^3/uL (4.5-11.0)
--- NOTE | 2021-04-05 09:32 | PM.PNPO.1 ---
Subjective Subjective Date Patient Seen: 04/05/21 Time Patient Seen: 09:33 Interval history: Information obtained via phone call with patient's daughter was able to translate from [place] to ration. Patient states she is doing well overall but reports pain in her left hip. At this time she denies fever, chills, nausea, chest pain, or shortness of breath. She reports that she has pain throughout her left hip. She has otherwise without complaints. Patient experienced a ground level fall on 04/03/2021 and felt immediate pain and was unable to weightbear. Patient has a history of hypertension and takes aspirin at home daily. Patient lives with her granddaughter in [place] and has other family in [place]. Exam Vital Signs (past 8 hours): - 04/05/21 03:05 04/05/21 03:17 04/05/21 07:43 Temperature 98.8 F 98.4 F Pulse Rate 76 81 81 Respiratory Rate 18 16 Blood Pressure 152/74 H 147/74 H Pulse Oximetry 95 92 04/05/21 09:05 Temperature Pulse Rate Respiratory Rate Blood Pressure Pulse Oximetry 94 Oxygen Delivery Method Nasal Cannula Oxygen Flow Rate 1 Narrative Exam Narrative: 85-year-old female postop day 1 status post left intramedullary nailing of intertrochanteric hip fracture. Patient is resting comfortably in bed, is in no acute distress, is alert oriented x3. Skin is warm and dry, and the skin surrounding the incision site is free of erythema, warmth, induration, or discharge. Ecchymosis appreciated over the lateral aspect of the left hip proximally. Dressing over the incision site is clean, dry, and intact. Good sensation appreciated throughout the bilateral lower extremities to light touch. Gross motor function intact throughout the bilateral lower extremities. DP pulses palpated bilaterally and are even. Calves are soft and nontender, negative Homans sign. No other signs of DVT appreciated. Const General: cooperative, healthy appearing and comfortable Resp Effort & Inspection: normal respiratory effort and able to speak in complete sentences Skin General: no rashes or lesions noted Objective Labs Result Diagrams: 04/05/21 08:14 04/04/21 04:40 Labs: Laboratory Results - last 24 hr 04/05/21 08:14 WBC 6.1 RBC 4.44 Hgb 13.3 Hct 40.7 MCV 91.6 MCH 29.9 MCHC 32.6 RDW 13.7 Plt Count 125 L PFSH Surgical History Hx of hernia repair Family History Mother Breast CA Father Medical history unknown Social History household members: family and children Smoking Status: Never smoker Assessment & Plan Post-op Postoperative Procedures: Procedures Operation Date: 04/04/21 17:45 Actual Procedure Side Surgeon arvind CALLAHAN IT FX Hip Left Lola Walters MD Postoperative day: 1 Postoperative status: doing well Postoperative plan: ambulate Postoperative plan narrative: Patient will remain weight-bearing as tolerated with the assistance of a front wheeled walker with physical therapy. Current pain management regimen is to be continued as it is adequately controlled the patient's pain level. Lovenox will be used for DVT prophylaxis for a total 4 weeks. 40 mg subcutaneous injections will be administered daily. Patient is to follow-up in the orthopedic clinic in 2 weeks for staple removal and repeat x-rays of the left hip. Will continue to monitor the patient's progress with physical therapy. Medicine is also following the patient for her hypertension diagnosis. Quality VTE Deep Vein Thrombosis/Pulmonary Embolism Present on Admission: No
[2021-04-05] MEDS: AMLODIPINE 5 MG TABLET PO (09:36)
[2021-04-05] MEDS: DOCUSATE 100 MG CAPSULE PO ×2 (09:36→22:06)
[2021-04-05] MEDS: LOSARTAN 50 MG TABLET PO (09:36)
[2021-04-05] MEDS: ENOXAPARIN 40 MG/0.4 ML SYRINGE SUBCUT (09:37)
[2021-04-05] MEDS: OXYCODONE IR 5 MG TABLET PO ×3 (09:45→22:05)
[2021-04-05] MEDS: ACETAMINOPHEN 325 MG TABLET 650 MG PO ×3 (09:45→22:06)
--- NOTE | 2021-04-05 12:17 | CM.DPC ---
Addendum entered by Lilly Triana R.N. 04/05/21 15:15: It is noted that patient is a two person max assist, and there are stairs in her home. Patient concerned that grand daughter will not be able to manage with her in this condition. Patient does have [employer]/Medicaid. Left a message with Luciana at [facility] regarding patient, as well as with Sylvie at [facility]. Had [place], offset assistant press operator, fax over referrals to both facilities. [facility] does not take [employer]. Addendum entered by Lilly Triana R.N. 04/05/21 14:46: Patient has Medicaid, and many facilities may not accept. Will see P.T. notes. Addendum entered by Lilly Triana R.N. 04/05/21 13:38: Evita mentioned that patient worked with P.T. Notes not yet in. Indicated, patient will need 24 hour assist at home. Spoke to patient's grand daughter, Ariana, for she resides with her. She was speaking to her as well. She has children at home, and has not been able to come in to see patient. Discussed skilled rehab briefly, but she indicated, she can't speak Armenian, so it would be hard for her. She asked about what her needs will be, and let her know that this counter caser can discuss this with P.T. Updated nurse, Evita, as well. Original Note: DCP Cont: Patient had her surgery yesterday. She has not yet worked with P.T. Nurse, Evita, will see if patient's grand daughter may be coming in today, daughter, Ivette, can also translate over the phone. P: DCP to follow closely. Will see how she does with P.T. today. Lilly Triana RN/Receiving Associate
--- NOTE | 2021-04-05 13:45 | PT.IIE ---
Current Diagnoses Age-related osteoporosis with current pathological fracture, unspecified femur, initial encounter for fracture (04/03/21) Displaced intertrochanteric fracture of left femur, initial encounter for closed fracture (04/03/21) Surgery Performed Operation Date: 04/04/21 17:45 Actual Procedures p IMN IT FX Hip(Left) - Lola Watlers MD Physical Therapy Inpatient Evaluation/Re-Eval M1 PT/OT-IP Prior Functional Status Start: 04/05/21 13:52 Freq: NEEDED Status: Active Protocol: Document 04/05/21 11:45 AB (Rec: 04/05/21 14:07 AB [email or web address]) Medical Review Prior Functional Status Medical History Reviewed Yes Communication Samoan speaking only Mobility and Gait stated that she is independent with all mobilities and ambulation without AD Social History Household Members family,children Living Arrangements House Number of Floors (Floors) Two Floors Number of Stairs To Enter/Railing? 10 steps wide rails to enter the house 2nd level bedroom: 8 steps L rail ascending Home Environment Standard Height Toilet,Walk in Shower Home Equipment Hand Held Shower,Grab Bars Near Toilet,Grab Bars In Shower Additional Social History Comment pt stated that she lives with her grand daugther but her grand daughte has a baby and 2 other children that she has to take care of and will not be able to assist her. daughter lives in [place] M2 PT-IP Current Condition Start: 04/05/21 13:52 Freq: NEEDED Status: Active Protocol: Document 04/05/21 11:45 AB (Rec: 04/05/21 14:07 AB [email or web address]) Physical Therapy Current Condition Current Condition Evaluation Date 04/05/21 Treatment Diagnosis L hip intertrochanteric fx s/p nailing; difficulty in walking Onset Date 04/03/21 Weight Bearing Status Weight Bearing Status Weight Bear as Tolerated Allowed Weight Bearing Amount (enter % LLE WBAT or #) (%) M3 PT-IP Subjective Start: 04/05/21 13:52 Freq: NEEDED Status: Active Protocol: Document 04/05/21 11:45 AB (Rec: 04/05/21 14:07 AB [email or web address]) Subjective Physical Therapy Visit Type Type Initial Evaluation Visit Start Time 11:45 Visit Stop Time 12:35 Total Visit Minutes 50 Number of TUNNELLER Visits 0 Physical Therapy Visit Comments Patient Comments pt is agreeable to do PT; Samoan speaking only (used google translate) Therapy Pain Assessment Pain When Pain Assessed At Rest Pain Present Pain Present Pain Reported Location left hip\ Scale Used pain scale not stated Pain Management Techniques Apply Cold,Modification of Treatment,Re-positioning, Timing of Activity with Medications M4 PT-IP Mobility and Gait Start: 04/05/21 13:52 Freq: NEEDED Status: Active Protocol: Document 04/05/21 11:45 AB (Rec: 04/05/21 14:07 [email or web address]) PT-Bed Mobility Assessment Supine to Sit Supine to Sit Maximum Assistance,1 Person Assistance,2 Person Assistance ,Head of Bed Elevated,Bedrails Scooting Scooting to Edge of Bed Dependent PT-Transfer Assessment Sit to and From Stand Sit to and from Stand Maximum Assistance,1 Person Assistance Equipment Transfer Assistive Device Gait Belt,Front Wheeled Walker Orthotic/Prosthetic Devices or Brace: No Transfers Transfer Destination Chair Transfer Technique Stand Step Pivot Transfer Ability Level of Assist Maximum Assistance,1 Person Assistance,Use of Upper Extremities Comments Mobility Comments pt agreeable to do PT. completed supine to sit max A and max cues. used bed rail and HOB elevated. able to sit on EOB max A with initial sitting and then min A after repositioning. completed sit to stand amx A and max cues. completed step transfer to chair max A and max cues using FWW. postioned pt on chair. set up for lunch. call light and table placed within reach . PT-Balance Assessment Sitting Balance and Reactions Static Sitting Balance Ability Fair Dynamic Sitting Balance Ability Poor Standing Balance and Reactions Static Standing Balance Ability Poor Dynamic Standing Balance Ability Poor Device Used FWW M5 PT-IP Objective Assessments Start: 04/05/21 13:52 Freq: NEEDED Status: Active Protocol: Document 04/05/21 11:45 AB (Rec: 04/05/21 14:07 AB [email or web address]) Orientation Orientation/Cognition Level of Alertness Alert Language Function Ability Hard of Hearing Safety Awareness Decreased Safety Awareness Gross Range of Motion Lower Extremity ROM Impairments LLE increase muscle guarding with ROM and c/o increase pain Strength Lower Extremity Strength Assessment Left Impaired Hip 3-/5 Knee 3-/5 Sensation Assessment Sensation Gross Sensation WNL Muscle Tone Muscle Tone WNL Yes M6 PT-IP Treatment Start: 04/05/21 13:52 Freq: NEEDED Status: Active Protocol: Document 04/05/21 11:45 AB (Rec: 04/05/21 14:07 AB [email or web address]) Physical Therapy Treatment Exercises Exercises Heel Slides Education Education Provided Precautions,Weight Bearing Status,Post-Op Packet,Safety M7 PT-IP Assessment and Plan Start: 04/05/21 13:52 Freq: NEEDED Status: Active Protocol: Document 04/05/21 11:45 AB (Rec: 04/05/21 14:07 AB [email or web address]) PT Summary Assessment and Plan Potential Rehabilitation Potential Good Status of Condition at Evaluation Evolving Summary Impairments Pain,ROM,Strength,Balance, Coordination,Sensation,Tone, Cognition,Bed Mobility, Transfers,Gait,Activity Tolerance Assessment Summary pt requiring max A and max cues with mobility. Pt has limited assist at home and currently will require SNF rehab to improve strength and mobility independence. pt lives her grand daughter but stated that grand daugther has children to take care of and will not be able to assist her . will continue to assess progress. pt also has stairs to etner the house and to get into 2nd floor bedroom and has to be able to complete safely prior to d/c but at this time is not appropriate to do stairs and has not been able to ambulate. Goals Bed Mobility Goal Standby Assistance Transfer Goal Standby Assistance,Front Wheeled Walker Gait Goal Standby Assistance,Front Wheel Walker Gait Distance 150 Other Goals up/down 10 steps L rail SBA Days to Meet Goals 10 Frequency of Treatment Frequency Of Treatment Twice a Day Treatment Plan Physical Therapy Treatment Plan Bed Mobility Training,Transfer Training,Gait Training, Therapeutic Exercise,Balance Retraining,Post Op Education, Discharge Planning,Hot or Cold Pack,Neuromuscular Re-ed, Coordination Retraining,Manual Therapy Precautions Other Precautions LLE WBAT Recommendations To Nursing Amount of Assist Needed 2 Person Assist Discharge Recommendations PT Discharge Recommendations SNF Rehab Equipment Needed for Home Before FWW if pt goes home Discharge Transportation Needs at Discharge Wheelchair/Cabulance
--- NOTE | 2021-04-05 15:07 | CM.DPNOTE ---
Faxed SNF referral packet to [facility] and emailed Sylvie at [facility]. Received fax conf. Virginia Armenta CM Asst.
--- NOTE | 2021-04-05 15:46 | PT.IPTN ---
Current Diagnoses Age-related osteoporosis with current pathological fracture, unspecified femur, initial encounter for fracture (04/03/21) Displaced intertrochanteric fracture of left femur, initial encounter for closed fracture (04/03/21) Surgery Performed Operation Date: 04/04/21 17:45 Actual Procedures p IMN IT FX Hip(Left) - Lola Walters MD Physical Therapy Treatment Note M2 PT-IP Current Condition Start: 04/05/21 13:52 Freq: NEEDED Status: Active Protocol: Document 04/05/21 11:45 AB (Rec: 04/05/21 14:07 AB [email or web address]) Physical Therapy Current Condition Current Condition Evaluation Date 04/05/21 Treatment Diagnosis L hip intertrochanteric fx s/p nailing; difficulty in walking Onset Date 04/03/21 Weight Bearing Status Weight Bearing Status Weight Bear as Tolerated Allowed Weight Bearing Amount (enter % LLE WBAT or #) (%) M3 PT-IP Subjective Start: 04/05/21 13:52 Freq: NEEDED Status: Active Protocol: Document 04/05/21 15:46 AB (Rec: 04/05/21 16:50 AB [email or web address]) Subjective Physical Therapy Visit Type Type Treatment Note Visit Start Time 15:46 Visit Stop Time 16:17 Total Visit Minutes 31 Number of PROFESSIONAL EMPLOYER CONSULTANT Visits 0 Physical Therapy Visit Comments Patient Comments pt is agreeable to do PT; pt is maltese speaking only: used google translate per nurse: pt has been refusing pain meds. informed pt that she has to be able to move better and walk and seems like pain is limiting her . pt then agreed to take pain meds. nurse informed. Therapy Pain Assessment Pain When Pain Assessed At Rest Pain Present Pain Present Pain Reported Location left hip\ Scale Used unable to state pain scale Pain Behaviors Facial Grimacing,Guarding, Holding Area Pain Management Techniques Apply Cold,Distraction, Modification of Treatment,Re- positioning,Timing of Activity with Medications M4 PT-IP Mobility and Gait Start: 04/05/21 13:52 Freq: NEEDED Status: Active Protocol: Document 04/05/21 15:46 AB (Rec: 04/05/21 16:50 AB [email or web address]) PT-Bed Mobility Assessment Supine to Sit Supine to Sit Maximum Assistance,1 Person Assistance,Head of Bed Elevated,Bedrails Scooting Scooting to Edge of Bed Maximum Assistance PT-Transfer Assessment Sit to and From Stand Sit to and from Stand Maximum Assistance,1 Person Assistance,2 Person Assistance ,Use of Upper Extremities Equipment Transfer Assistive Device Gait Belt,Front Wheeled Walker Orthotic/Prosthetic Devices or Brace: No Transfers Transfer Destination Chair Transfer Ability Level of Assist Maximum Assistance,1 Person Assistance,2 Person Assistance ,Use of Upper Extremities Comments Mobility Comments pt agreed to do PT. completed supine to sit max A and max cues. max A for initial sitting balance with increase posterior trunk lean during sitting and cued for positioning. completed sit to stand max A x 1-2 and max cues. able to take steps ~ 3 ft using FWW max A x 1-2 but unable to move farther and chair positioned behind pt to sit on. present with unsteady antalgic gait and with increase bilateral knee and forward trunk flexion towards end of ambulation requiring assist to sit on chair. positioned pt on chair. call light and table placed within reach. (+) SOB. O2 sat at rest: 93-94% at room air. Gait Assessment Gait Gait Assistance Required: Maximum Assistance,1 Person Assist,2 Person Assist Distance (Feet) 3 Able to Maintain Weight Bearing Status Yes During Gait Assistive Devices Assistive Device Gait Belt,Front Wheeled Walker Orthotic/Prosthetic Devices or Brace: No Gait Deviations General Gait Pattern Antalgic,Decreased Stride Length,Decreased Feet Clearance,Flexed Trunk,Step-to Gait Factors Limiting Gait Function Factors Limiting Gait Function Decreased Activity Tolerance, Decreased Strength,Difficulty Following Directions,Limited Range of Motion,Pain,Poor Balance,Poor Safety Awareness, Respiratory Distress M5 PT-IP Objective Assessments Start: 04/05/21 13:52 Freq: NEEDED Status: Active Protocol: Document 04/05/21 11:45 AB (Rec: 04/05/21 14:07 AB [email or web address]) Orientation Orientation/Cognition Level of Alertness Alert Language Function Ability Hard of Hearing Safety Awareness Decreased Safety Awareness Gross Range of Motion Lower Extremity ROM Impairments LLE increase muscle guarding with ROM and c/o increase pain Strength Lower Extremity Strength Assessment Left Impaired Hip 3-/5 Knee 3-/5 Sensation Assessment Sensation Gross Sensation WNL Muscle Tone Muscle Tone WNL Yes M6 PT-IP Treatment Start: 04/05/21 13:52 Freq: NEEDED Status: Active Protocol: Document 04/05/21 15:46 AB (Rec: 04/05/21 16:50 AB [email or web address]) Physical Therapy Treatment Education Education Provided Safety M7 PT-IP Assessment and Plan Start: 04/05/21 13:52 Freq: NEEDED Status: Active Protocol: Document 04/05/21 15:46 AB (Rec: 04/05/21 16:50 AB [email or web address]) PT Summary Assessment and Plan Potential Rehabilitation Potential Fair Summary Impairments Pain,ROM,Strength,Balance, Coordination,Sensation,Tone, Cognition,Bed Mobility, Transfers,Gait,Activity Tolerance Progress Towards Goals Slow Progress due to Pain,Slow Progress due to Activity Tolerance,Slow Progress - Other Assessment Summary pt requiring max A x 1-2 with transfers and ambulation using FWW and unable to tolerate much activity and was only able to ambulate ~ 3 ft. pt will require SNF rehab to improve strength and independence. Goals Bed Mobility Goal Standby Assistance Transfer Goal Standby Assistance,Front Wheeled Walker Gait Goal Standby Assistance,Front Wheel Walker Gait Distance 150 Other Goals up/down 10 steps L rail SBA Days to Meet Goals 10 Frequency of Treatment Frequency Of Treatment Twice a Day Treatment Plan Physical Therapy Treatment Plan Bed Mobility Training,Transfer Training,Gait Training, Therapeutic Exercise,Balance Retraining,Post Op Education, Discharge Planning,Hot or Cold Pack,Neuromuscular Re-ed, Coordination Retraining,Manual Therapy Precautions Other Precautions LLE WBAT Recommendations To Nursing Amount of Assist Needed 2 Person Assist Discharge Recommendations PT Discharge Recommendations SNF Rehab Equipment Needed for Home Before FWW if pt goes home Discharge Transportation Needs at Discharge Wheelchair/Cabulance
--- NOTE | 2021-04-05 18:44 | P.PN_ITS ---
Subjective Subjective Date Patient Seen: 04/05/21 Time Patient Seen: 15:30 Interval history: The patient is an 85-year-old Ecuadorean-speaking female who presented to the hospital following a fall.? Patient suffered a left hip fracture.? Now POD#1. Still with some twinging hip pain but improved control with medications later today. She denies chest pain, nausea, vomiting, abdominal pain. No shortness of breath. Exam Vital Signs (past 8 hours): - 04/05/21 12:35 04/05/21 15:00 04/05/21 16:00 Temperature 98.6 F 98.3 F Pulse Rate 102 H 92 H Respiratory Rate 18 20 Blood Pressure 147/86 H 161/81 H Pulse Oximetry 93 93 93 Oxygen Delivery Method Room Air Oxygen Flow Rate 0 Narrative Exam Narrative: ?Pleasant female lying in bed who appears comfortable Resp Other:?Lungs clear to auscultation Cardio Other:?Cardiac exam: Regular rate and rhythm normal S1-S2 GI Other:?Abdomen:? Soft nontender nondistended Skin Other:?Left leg with chronic venous stasis changes Extrem Other:?L leg dressing c/d/i. Objective Labs Result Diagrams: 04/05/21 08:14 04/04/21 04:40 Labs: Laboratory Results - last 24 hr 04/05/21 08:14 WBC 6.1 RBC 4.44 Hgb 13.3 Hct 40.7 MCV 91.6 MCH 29.9 MCHC 32.6 RDW 13.7 Plt Count 125 L PFSH Surgical History Hx of hernia repair Family History Mother Breast CA Father Medical history unknown Social History household members: family and children Smoking Status: Never smoker Assessment & Plan Assessment & Plan narrative: Shiraz Vizcaino is admitted as an inpatient for surgical repair of a closed left intertrochanteric hip fracture.? Dr. Bhatt has been notified, will see the patient in the morning and anticipates taking her into the OR sometime later tomorrow. 1.? Closed left intertrochanteric hip fracture, acute, present on admission * POD #1. Doing well. Continue PT/OT and pain control. * DVT ppx per orthopedics. 2. Essential hypertension, poorly controlled likely due to pain, present on admission * blood pressure poorly controlled, started amlodipine 5 mg daily in addition to losartan. Continue to adjust as needed moving forward. Code: Full, surrogate is patient's grand-daughter Dispo: hopefully to home, pending PT/OT evaluations. COVID-19 COVID-19 status: Negative Time Spent With Patient Critical Care time: I spent a total of [] minutes of critical care time on this patient's care today; this time is exclusive of procedural time. Quality VTE Deep Vein Thrombosis/Pulmonary Embolism Present on Admission: No
[2021-04-06] VITALS (10 sets, daily range): BP systolic 131–155; BP diastolic 59–74; PULSE 78–84; RESP 17–18; TEMP 35.9–37.3; O2SAT 91–95
--- NOTE | 2021-04-06 02:48 | PC.NURSE ---
Patient is [place] Citizen speaking only so assessment completed with assistance of middleware engineer phone. Is alert and oriented. Breath sounds CTA with RA sat of 93% and denies SOB. Denies nausea. BT present and is passing flatus but has not had BM since 04/03. Indwelling catheter is patent and remains in due to poor mobility. Is able to move self in bed. Gait not assessed but reportedly gets up with walker and 2 assists. Denies pain but stated she will want pain medication prior to getting up to walk with PT later today; reassurance provided that she will be medicated prior. Dressing to left hip is CDI. Refused SCD's so reminded to ankle wave. Fall risk score is high and bed alarm is activated.
[2021-04-06 04:58] LABS: Add Manual Diff / Slide Review NO; Basophils Absolute Auto 100 /uL (0-100); Basophils Percent Auto 0.9 % (0-2); Eosinophils Absolute Auto 200 /uL (0-450); Eosinophils Percent Auto 3.7 % (2-4); Hematocrit 38.4 % (36-46); Hemoglobin 12.5 g/dL (12.0-16.0); Lymphocytes Absolute Auto 1000 /uL (1100-4500); Mean Corpuscular HGB Conc 32.6 % (30-36); Mean Corpuscular Hemoglobin 29.6 PG (26-34); Mean Corpuscular Volume 90.7 fL (80-100); Monocytes Absolute Auto 800 /uL (0-900); Monocytes Percent Auto 14.6 % (3-14); Neutrophils Absolute Auto 3400 /uL (1500-7000); Neutrophils Percent Auto 62.8 % (50-75); Platelet Count 114 X10^3/uL (150-400); Red Blood Cell Count 4.23 X10^6/uL (4.0-5.2); Red Cell Distribution Width 13.8 % (11.6-14.8); White Blood Cell Count 5.4 X10^3/uL (4.5-11.0)
[2021-04-06] MEDS: cefTRIAXone 1,000 MG in SODIUM CHLORIDE 0.9% 100 ML 200 ML IV (06:48)
[2021-04-06] MEDS: SODIUM CHLORIDE 0.9% FLUSH 10 ML IV ×3 (06:49→19:58)
[2021-04-06] MEDS: AMLODIPINE 5 MG TABLET PO (08:50)
[2021-04-06] MEDS: ENOXAPARIN 40 MG/0.4 ML SYRINGE SUBCUT (08:50)
[2021-04-06] MEDS: DOCUSATE 100 MG CAPSULE PO ×2 (08:50→19:58)
[2021-04-06] MEDS: LOSARTAN 50 MG TABLET PO (08:51)
[2021-04-06] MEDS: OXYCODONE IR 10 MG TABLET PO (08:51)
[2021-04-06] MEDS: ACETAMINOPHEN 325 MG TABLET 650 MG PO (08:51)
--- NOTE | 2021-04-06 10:11 | PM.PNPO.1 ---
Subjective Subjective Date Patient Seen: 04/06/21 Time Patient Seen: 10:11 Interval history: The patient states her left hip pain is mild. She is working with physical therapy. Information obtained via phone call with patient's daughter was able to translate from Scottish to Cymraes.? ? She has otherwise without complaints.? She is 2 days status post left hip intramedullary nailing for a left hip intertrochanteric fracture. Patient experienced a ground level fall on 04/03/2021 and felt immediate pain and was unable to weightbear.? Patient has a history of hypertension and takes aspirin at home daily.? The patient also currently has a UTI and is being treated with antibiotics. Patient lives with her granddaughter in [place] and has other family in [place]. Exam Vital Signs (past 8 hours): - 04/06/21 05:08 04/06/21 08:10 04/06/21 08:32 Temperature 98.8 F 98.3 F Pulse Rate 79 78 Respiratory Rate 18 18 Blood Pressure 131/60 143/65 H Pulse Oximetry 94 95 93 04/06/21 08:33 04/06/21 08:51 Temperature Pulse Rate 79 Respiratory Rate Blood Pressure 131/60 Pulse Oximetry 92 Oxygen Delivery Method Nasal Cannula Oxygen Flow Rate 2 Narrative Exam Narrative: 85-year-old female, resting comfortably in bed, no acute distress. Her daughter was on the phone for translation from Scottish to Cymraes. Motor functions are intact in bilateral lower extremities. Sensation is grossly intact to light touch in bilateral lower extremities. Both legs are warm and dry. Bilateral calves are soft, nontender to palpation. There is scant drainage on the dressing on her left lateral hip, no surrounding erythema or induration. Objective Labs Result Diagrams: 04/06/21 04:40 04/04/21 04:40 Labs: Laboratory Results - last 24 hr 04/06/21 04:40 WBC 5.4 RBC 4.23 Hgb 12.5 Hct 38.4 MCV 90.7 MCH 29.6 MCHC 32.6 RDW 13.8 Plt Count 114 L Neut % (Auto) 62.8 Lymph % (Auto) 18.0 L Falls % (Auto) 14.6 H Eos % (Auto) 3.7 Baso % (Auto) 0.9 Neut # (Auto) 3400 Lymph # (Auto) 1000 L Falls # (Auto) 800 Eos # (Auto) 200 Baso # (Auto) 100 [facility] Surgical History Hx of hernia repair Family History Mother Breast CA Father Medical history unknown Social History household members: family and children Smoking Status: Never smoker Assessment & Plan Post-op Postoperative Procedures: Procedures Operation Date: 04/04/21 17:45 Actual Procedure Side Surgeon arvind CALLAHAN IT FX Hip Left Lola Walters MD Postoperative plan narrative: Patient will remain weight-bearing as tolerated with the assistance of a front wheeled walker. Mobilize with physical therapy Current pain management regimen is to be continued as it is adequately controlled the patient's pain level. Lovenox 40mg daily will be used for DVT prophylaxis for a total 4 weeks. Patient is to follow-up in the orthopedic clinic in 2 weeks for staple removal and repeat x-rays of the left hip. Medicine is also following the patient for her hypertension diagnosis and UTI. Okay to discharge once cleared by hospitalist and PT, the family would like for the patient to be discharged to a longterm facility if covered by insurance. Quality VTE Deep Vein Thrombosis/Pulmonary Embolism Present on Admission: No
[2021-04-06] MEDS: polyethylene glycoL 3350 17 GM POWD.PACK PO (12:10)
--- NOTE | 2021-04-06 14:13 | CM.DPC ---
DCP Note ELECTRICAL LOGGING OPERATOR calls [facility] admissions and it is reported that they will not have beds until mid next week. ELECTRICAL LOGGING OPERATOR calls and leaves with hSaron Atwood and faxes clinicals for referral. ELECTRICAL LOGGING OPERATOR calls [facility] for f/u after referral packet was faxed yesterday. ELECTRICAL LOGGING OPERATOR calls [facility] admissions and it is reported that there will be no admissions until after the weekend. Plan: Continue to f/u with SNFs for SNF bed upon d/c, in need of [employer] authorization JOSE ALFREDO Steven
--- NOTE | 2021-04-06 14:45 | PT.IPTN ---
Current Diagnoses Age-related osteoporosis with current pathological fracture, unspecified femur, initial encounter for fracture (04/03/21) Displaced intertrochanteric fracture of left femur, initial encounter for closed fracture (04/03/21) Surgery Performed Operation Date: 04/04/21 17:45 Actual Procedures p IMN IT FX Hip(Left) - Lola Walters MD Physical Therapy Treatment Note M2 PT-IP Current Condition Start: 04/05/21 13:52 Freq: NEEDED Status: Active Protocol: Document 04/05/21 11:45 AB (Rec: 04/05/21 14:07 AB [email or web address]) Physical Therapy Current Condition Current Condition Evaluation Date 04/05/21 Treatment Diagnosis L hip intertrochanteric fx s/p nailing; difficulty in walking Onset Date 04/03/21 Weight Bearing Status Weight Bearing Status Weight Bear as Tolerated Allowed Weight Bearing Amount (enter % LLE WBAT or #) (%) M3 PT-IP Subjective Start: 04/05/21 13:52 Freq: NEEDED Status: Active Protocol: Document 04/06/21 14:45 AB (Rec: 04/06/21 16:39 AB [email or web address]) Subjective Physical Therapy Visit Type Type Treatment Note Visit Start Time 14:45 Visit Stop Time 15:10 Total Visit Minutes 25 Number of MARINE SCIENTIST Visits 0 Physical Therapy Visit Comments Patient Comments pt is agreeable to do PT Therapy Pain Assessment Pain When Pain Assessed At Rest Pain Present Pain Present Pain Reported Location left hip\ Scale Used pain scale not stated M4 PT-IP Mobility and Gait Start: 04/05/21 13:52 Freq: NEEDED Status: Active Protocol: Document 04/06/21 14:45 AB (Rec: 04/06/21 16:39 AB [email or web address]) PT-Bed Mobility Assessment Supine to Sit Supine to Sit Maximum Assistance Sit to Supine Sit to Supine Maximum Assistance PT-Transfer Assessment Sit to and From Stand Sit to and from Stand Maximum Assistance,1 Person Assistance,Use of Upper Extremities Equipment Transfer Assistive Device Gait Belt,Front Wheeled Walker Orthotic/Prosthetic Devices or Brace: No Transfers Transfer Destination Bedside Commode Transfer Technique ambulated Transfer Ability Level of Assist Maximum Assistance,1 Person Assistance,Use of Upper Extremities Comments Mobility Comments pt supine in bed and agreed to do PT. completed supine to sit max A and max cues. requested to use the toilet. completed sit to stand max A and ambulated to the bedside commode ~ 5 ft using FWW max A and cues. cued for upright posture and use of FWW for support and elevating LE. pt completed hygiene care and brief management. completed sit to stand max A and cues and ambulated in room ~ 20 ft using FWW max A and cues. pt rested on EOB. (+) SOB but stated that she feels ok. agreed to walk again and completed ~ 15 ft using FWW max A and cues. requested to go back to bed afterwards and completed sit to supine max A for LE elevation. positioned pt in bed. call light and table placed wtihin reach. Gait Assessment Gait Gait Assistance Required: Maximum Assistance Distance (Feet) 20 Able to Maintain Weight Bearing Status Yes During Gait Assistive Devices Assistive Device Gait Belt,Front Wheeled Walker Orthotic/Prosthetic Devices or Brace: No Gait Deviations General Gait Pattern Antalgic,Decreased Stride Length,Decreased Feet Clearance,Step-to Gait Factors Limiting Gait Function Factors Limiting Gait Function Decreased Activity Tolerance, Decreased Strength,Difficulty Following Directions,Limited Range of Motion,Pain,Poor Balance,Poor Safety Awareness M5 PT-IP Objective Assessments Start: 04/05/21 13:52 Freq: NEEDED Status: Active Protocol: Document 04/05/21 11:45 AB (Rec: 04/05/21 14:07 AB [email or web address]) Orientation Orientation/Cognition Level of Alertness Alert Language Function Ability Hard of Hearing Safety Awareness Decreased Safety Awareness Gross Range of Motion Lower Extremity ROM Impairments LLE increase muscle guarding with ROM and c/o increase pain Strength Lower Extremity Strength Assessment Left Impaired Hip 3-/5 Knee 3-/5 Sensation Assessment Sensation Gross Sensation WNL Muscle Tone Muscle Tone WNL Yes M6 PT-IP Treatment Start: 04/05/21 13:52 Freq: NEEDED Status: Active Protocol: Document 04/06/21 14:45 AB (Rec: 04/06/21 16:39 AB [id number]) Physical Therapy Treatment Education Education Provided Safety M7 PT-IP Assessment and Plan Start: 04/05/21 13:52 Freq: NEEDED Status: Active Protocol: Document 04/06/21 14:45 AB (Rec: 04/06/21 16:39 AB [email or web address]) PT Summary Assessment and Plan Potential Rehabilitation Potential Good Summary Impairments Pain,ROM,Strength,Balance, Coordination,Sensation,Tone, Cognition,Bed Mobility, Transfers,Gait,Activity Tolerance Progress Towards Goals Slow Progress due to Pain,Slow Progress due to Activity Tolerance Assessment Summary pt progressing slowly and able to ambulate ~ 20 ft using FWW max A and max cues. pt will require SNF rehab to improve strength and mobility independence. Goals Bed Mobility Goal Standby Assistance Transfer Goal Standby Assistance,Front Wheeled Walker Gait Goal Standby Assistance,Front Wheel Walker Gait Distance 150 Other Goals up/down 10 steps L rail SBA Days to Meet Goals 10 Frequency of Treatment Frequency Of Treatment Twice a Day Treatment Plan Physical Therapy Treatment Plan Bed Mobility Training,Transfer Training,Gait Training, Therapeutic Exercise,Balance Retraining,Post Op Education, Discharge Planning,Hot or Cold Pack,Neuromuscular Re-ed, Coordination Retraining,Manual Therapy Precautions Other Precautions LLE WBAT Recommendations To Nursing Amount of Assist Needed 2 Person Assist Discharge Recommendations PT Discharge Recommendations SNF Rehab Equipment Needed for Home Before FWW if pt goes home Discharge Transportation Needs at Discharge Wheelchair/Cabulance
--- NOTE | 2021-04-06 17:01 | P.PN_ITS ---
Subjective Subjective Date Patient Seen: 04/06/21 Time Patient Seen: 17:01 Interval history: The patient is an 85-year-old Cypriot-speaking female who presented to the hospital following a fall.? Patient suffered a left hip fracture.? Now POD#2. Pain is controlled today. She denies chest pain, nausea, vomiting, abdominal pain. No shortness of breath. Exam Vital Signs (past 8 hours): - 04/06/21 14:00 04/06/21 15:44 Temperature 99.1 F 96.7 F L Pulse Rate 82 84 Respiratory Rate 18 17 Blood Pressure 131/65 137/59 L Pulse Oximetry 94 91 Oxygen Delivery Method Nasal Cannula Oxygen Flow Rate 0 Narrative Exam Narrative: Pleasant female lying in bed who appears comfortable Resp Other:?Lungs clear to auscultation Cardio Other:?Cardiac exam: Regular rate and rhythm normal S1-S2 GI Other:?Abdomen:? Soft nontender nondistended Skin Other:?Left leg with chronic venous stasis changes Extrem Other:?L leg dressing c/d/i. Objective Labs Result Diagrams: 04/06/21 04:40 04/04/21 04:40 Labs: Laboratory Results - last 24 hr 04/06/21 04:40 WBC 5.4 RBC 4.23 Hgb 12.5 Hct 38.4 MCV 90.7 MCH 29.6 MCHC 32.6 RDW 13.8 Plt Count 114 L Neut % (Auto) 62.8 Lymph % (Auto) 18.0 L [place] % (Auto) 14.6 H Eos % (Auto) 3.7 Baso % (Auto) 0.9 Neut # (Auto) 3400 Lymph # (Auto) 1000 L [place] # (Auto) 800 Eos # (Auto) 200 Baso # (Auto) 100 PFSH Surgical History Hx of hernia repair Family History Mother Breast CA Father Medical history unknown Social History household members: family and children Smoking Status: Never smoker Assessment & Plan Assessment & Plan narrative: Shiraz Vizcaino is admitted as an inpatient for s urgical repair of a closed left intertrochanteric hip fracture. 1.? Closed left intertrochanteric hip fracture, acute, present on admission * POD #2. Doing well. Continue PT/OT and pain control. * DVT ppx per orthopedics. 2. Essential hypertension, poorly controlled likely due to pain, present on adm ission * blood pressure poorly controlled, started amlodipine 5 mg daily in addition to losartan. Continue to adjust as needed moving forward. 3. asymptomatic bacteruia, less likely acute cystitis. - patient with positive urine cultures. Questionable symptoms on admission. Received at least 3 days of antibiotics on admission and over her stay with orthopedics. No further treatment is needed Code: Full, surrogate is patient's grand-daughter Dispo: probable SNF, family requesting SNF at this time. Will see how she progresses with PT. Time Spent With Patient Critical Care time: I spent a total of [] minutes of critical care time on this patient's care today; this time is exclusive of procedural time. Quality VTE Deep Vein Thrombosis/Pulmonary Embolism Present on Admission: No
[2021-04-07] VITALS (9 sets, daily range): BP systolic 125–153; BP diastolic 66–82; PULSE 73–95; RESP 15–18; TEMP 36–37.1; O2SAT 93–99
[2021-04-07] MEDS: OXYCODONE IR 10 MG TABLET PO (00:51)
[2021-04-07 05:54] LABS: Add Manual Diff / Slide Review NO; Basophils Absolute Auto 0 /uL (0-100); Basophils Percent Auto 0.9 % (0-2); Eosinophils Absolute Auto 200 /uL (0-450); Eosinophils Percent Auto 3.3 % (2-4); Hematocrit 38.2 % (36-46); Hemoglobin 12.6 g/dL (12.0-16.0); Lymphocytes Absolute Auto 1100 /uL (1100-4500); Lymphocytes Percent Auto 22.6 % (25-40); Mean Corpuscular HGB Conc 33.1 % (30-36); Mean Corpuscular Hemoglobin 29.8 PG (26-34); Mean Corpuscular Volume 90.2 fL (80-100); Monocytes Absolute Auto 700 /uL (0-900); Monocytes Percent Auto 14.5 % (3-14); Neutrophils Absolute Auto 3000 /uL (1500-7000); Neutrophils Percent Auto 58.7 % (50-75); Platelet Count 130 X10^3/uL (150-400); Red Blood Cell Count 4.24 X10^6/uL (4.0-5.2); Red Cell Distribution Width 13.8 % (11.6-14.8)
[2021-04-07] MEDS: DOCUSATE 100 MG CAPSULE PO (08:43)
[2021-04-07] MEDS: LOSARTAN 50 MG TABLET PO (08:43)
[2021-04-07] MEDS: ENOXAPARIN 40 MG/0.4 ML SYRINGE SUBCUT (08:43)
[2021-04-07] MEDS: ACETAMINOPHEN 325 MG TABLET 650 MG PO (08:44)
[2021-04-07] MEDS: SODIUM CHLORIDE 0.9% FLUSH 10 ML IV (08:44)
[2021-04-07] MEDS: AMLODIPINE 5 MG TABLET PO (08:44)
--- NOTE | 2021-04-07 08:58 | P.PN_ITS ---
Subjective Subjective Date Patient Seen: 04/07/21 Time Patient Seen: 08:59 Interval history: Spoke with patient using [place]al[place] modern languages professor service. Patient states she is doing well overall but reports a 5/10 pain intensity at the moment. She currently denies fever, chills, nausea, chest pain, shortness of breath, urinary retention, or numbness and tingling in the bilateral lower extremities. Her only complaint at the moment is constipation. Exam Vital Signs (past 8 hours): - 04/07/21 07:45 04/07/21 07:47 04/07/21 07:54 Temperature 96.8 F L Pulse Rate 73 Respiratory Rate 16 Blood Pressure 142/66 H Pulse Oximetry 94 94 95 04/07/21 08:43 Temperature Pulse Rate Respiratory Rate Blood Pressure 142/66 H Pulse Oximetry Oxygen Delivery Method Room Air Oxygen Flow Rate 0 Narrative Exam Narrative: Pleasant 85-year-old female postop day 3 status post intramedullary nailing of left intertrochanteric hip fracture. Slightly difficult exam due to language barrier. Patient is resting comfortably in room chair, is in no acute distress, and is alert and oriented x3. Skin is warm and dry, and the skin surrounding the incision site is free of erythema, warmth, induration, or discharge. Dressing over the incision site is clean, dry, and intact. Tenderness to palpation appreciated over the anteromedial aspect of the proximal left thigh. Good sensation appreciated throughout the bilateral lower extremities to light touch. Gross motor function intact throughout the bilateral lower extremities. Prominent tortuous veins appreciated on the anterior aspect of the left leg with a dusky erythematous appearance which the patient notes is baseline due to a prior trauma. Calves are soft and nontender, negative Homans sign. DP pulses palpated bilaterally and are even. No other signs of DVT appreciated. Const General: cooperative, healthy appearing and comfortable Resp Effort & Inspection: normal respiratory effort and able to speak in complete sentences Skin General: no rashes or lesions noted Objective Labs Result Diagrams: 04/07/21 05:17 04/04/21 04:40 Labs: Laboratory Results - last 24 hr 04/07/21 05:17 WBC 5.0 RBC 4.24 Hgb 12.6 Hct 38.2 MCV 90.2 MCH 29.8 MCHC 33.1 RDW 13.8 Plt Count 130 L Neut % (Auto) 58.7 Lymph % (Auto) 22.6 L [place] % (Auto) 14.5 H Eos % (Auto) 3.3 Baso % (Auto) 0.9 Neut # (Auto) 3000 Lymph # (Auto) 1100 [place] # (Auto) 700 Eos # (Auto) 200 Baso # (Auto) 0 PFSH Surgical History Hx of hernia repair Family History Mother Breast CA Father Medical history unknown Social History household members: family and children Smoking Status: Never smoker Assessment & Plan Post-op Postoperative Procedures: Procedures Operation Date: 04/04/21 17:45 Actual Procedure Side Surgeon arvind CALLAHAN IT FX Hip Left Lola Walters MD Postoperative day: 3 Postoperative status: doing well Postoperative plan: ambulate Postoperative plan narrative: Current pain management regimen is to be continued as it is adequately controlled the patient's pain level. Patient is to remain weight-bearing as tolerated with the assistance of a front wheeled walker with physical therapy. Sequential compression devices and Lovenox will be used for DVT prophylaxis. Lovenox should be continued for 4 total weeks or 28 total days with 40 mg subcutaneous injections administered daily. Patient will be discharged when she has been cleared by Medicine. Patient likely to be transferred to shelter facility pending facility acceptance. Quality VTE Deep Vein Thrombosis/Pulmonary Embolism Present on Admission: No
--- NOTE | 2021-04-07 09:31 | PT.IPTN ---
Current Diagnoses Age-related osteoporosis with current pathological fracture, unspecified femur, initial encounter for fracture (04/03/21) Displaced intertrochanteric fracture of left femur, initial encounter for closed fracture (04/03/21) Surgery Performed Operation Date: 04/04/21 17:45 Actual Procedures p IMN IT FX Hip(Left) - Lola Walters MD Physical Therapy Treatment Note M2 PT-IP Current Condition Start: 04/05/21 13:52 Freq: NEEDED Status: Active Protocol: Document 04/05/21 11:45 AB (Rec: 04/05/21 14:07 AB [email or web address]) Physical Therapy Current Condition Current Condition Evaluation Date 04/05/21 Treatment Diagnosis L hip intertrochanteric fx s/p nailing; difficulty in walking Onset Date 04/03/21 Weight Bearing Status Weight Bearing Status Weight Bear as Tolerated Allowed Weight Bearing Amount (enter % LLE WBAT or #) (%) M3 PT-IP Subjective Start: 04/05/21 13:52 Freq: NEEDED Status: Active Protocol: Document 04/07/21 09:31 AB (Rec: 04/07/21 13:[facility] Subjective Physical Therapy Visit Type Type Treatment Note Visit Start Time 09:31 Visit Stop Time 10:03 Total Visit Minutes 32 Number of OFFICE TECHNOLOGY PROFESSOR Visits 0 Physical Therapy Visit Comments Patient Comments agreeable to do PT; pt is Gibraltarian speaking only : used google translate to assist with translation Therapy Pain Assessment Pain When Pain Assessed At Rest Pain Present Pain Present Pain Reported Location left hip\ Scale Used pain scale not stated Pain Management Techniques Apply Cold,Modification of Treatment,Re-positioning, Timing of Activity with Medications M4 PT-IP Mobility and Gait Start: 04/05/21 13:52 Freq: NEEDED Status: Active Protocol: Document 04/07/21 09:31 AB (Rec: 04/07/21 13:29 AB [email or web address]) PT-Transfer Assessment Sit to and From Stand Sit to and from Stand Moderate Assistance,1 Person Assistance,Use of Upper Extremities Equipment Transfer Assistive Device Gait Belt,Front Wheeled Walker Orthotic/Prosthetic Devices or Brace: No Transfers Transfer Destination Bedside Commode Transfer Technique ambulated Transfer Ability Level of Assist Moderate Assistance,1 Person Assistance,Use of Upper Extremities Comments Mobility Comments pt sitting on chair. agreeable to do PT. requested to use the toilet. completed sit to stand mod A and ambulated to bedside commode using FWW ~ 10 ft mod A and max cues. pt was able to completed sit to stand from the bedside commode mod A and cues and maintain standing using FWW for support mod A while completing hygiene care and brief management. pt ambulated back to her chair using fWW mod A and rested. ( +) SOB but unable to get O2 sat reading with pulse ox. pt agreed to ambulated again and completed ~ 30 ft in room using FWW mod A and cues. cued for upright posture, weight shifting and increasing LE elevation. pt sat back on chair. completed seated exercises on BLE: seated marching, LAQx with 5 sec hold, ankle pumps. positioned pt on chair. call light and table placed within reach. Gait Assessment Gait Gait Assistance Required: Minimum Assistance Distance (Feet) 30 Able to Maintain Weight Bearing Status Yes During Gait Assistive Devices Assistive Device Gait Belt,Front Wheeled Walker Orthotic/Prosthetic Devices or Brace: No Gait Deviations General Gait Pattern Antalgic,Ataxic,Decreased Feet Clearance,Step-to Gait Factors Limiting Gait Function Factors Limiting Gait Function Decreased Activity Tolerance, Decreased Strength,Difficulty Following Directions,Limited Range of Motion,Pain,Poor Balance,Respiratory Distress M5 PT-IP Objective Assessments Start: 04/05/21 13:52 Freq: NEEDED Status: Active Protocol: Document 04/05/21 11:45 AB (Rec: 04/05/21 14:07 AB [id number]) Orientation Orientation/Cognition Level of Alertness Alert Language Function Ability Hard of Hearing Safety Awareness Decreased Safety Awareness Gross Range of Motion Lower Extremity ROM Impairments LLE increase muscle guarding with ROM and c/o increase pain Strength Lower Extremity Strength Assessment Left Impaired Hip 3-/5 Knee 3-/5 Sensation Assessment Sensation Gross Sensation WNL Muscle Tone Muscle Tone WNL Yes M6 PT-IP Treatment Start: 04/05/21 13:52 Freq: NEEDED Status: Active Protocol: Document 04/07/21 09:31 AB (Rec: 04/07/21 13:29 AB [email or web address]) Physical Therapy Treatment Exercises Exercises Ankle Pumps Education Education Provided Safety Other Treatments Other Treatment Performed completed seated marching, LAQs with 5 sec hold and ankle pumps M7 PT-IP Assessment and Plan Start: 04/05/21 13:52 Freq: NEEDED Status: Active Protocol: Document 04/07/21 09:31 AB (Rec: 04/07/21 13:29 AB [id number]) PT Summary Assessment and Plan Potential Rehabilitation Potential Good Summary Impairments Pain,ROM,Strength,Balance, Coordination,Sensation,Tone, Cognition,Bed Mobility, Transfers,Gait,Activity Tolerance Progress Towards Goals Slow Progress due to Pain,Slow Progress due to Activity Tolerance Assessment Summary pt progressing slowly with mobility and requiring mod A with ambulation and was able to ambulate ~ 30 ft today . presents with slow paced gait and cued for upright posture and weight shifting. pt needs to be more independent than current level to be able to safely go home. Pt will need SNF rehab. Goals Bed Mobility Goal Standby Assistance Transfer Goal Standby Assistance,Front Wheeled Walker Gait Goal Standby Assistance,Front Wheel Walker Gait Distance 150 Other Goals up/down 10 steps L rail SBA Days to Meet Goals 10 Frequency of Treatment Frequency Of Treatment Twice a Day Treatment Plan Physical Therapy Treatment Plan Bed Mobility Training,Transfer Training,Gait Training, Therapeutic Exercise,Balance Retraining,Post Op Education, Discharge Planning,Hot or Cold Pack,Neuromuscular Re-ed, Coordination Retraining,Manual Therapy Precautions Other Precautions LLE WBAT Recommendations To Nursing Amount of Assist Needed 1 Person Assist Discharge Recommendations PT Discharge Recommendations SNF Rehab Equipment Needed for Home Before FWW if pt goes home Discharge Transportation Needs at Discharge Wheelchair/Cabulance
--- NOTE | 2021-04-07 10:44 | CM.DPC ---
Addendum entered by Lilly Triana R.N. 04/07/21 12:36: Spoke to Luciana at [facility], stated, she had not yet seen referral. Confirmed that they are contracted with [facility], and do have translating services available, but do not anticipate a bed being opened until next week, and insurance auth would need to be obtained. Antionette Calabrese RN, has also contacted some facilities in [place], many admission offices are closed. Will give grand daughter update, as soon as this is discussed with P.T. Home plan may be the only option at this time, with home health. Original Note: DCP Cont: Spoke to patient's grand daughter, Ariana. She called to check in. This child welfare caseworker already had spoken to RENETTA Rdz, who had indicated, from an ortho stand point, she is improving, weight bearing as tolerated. Nurse, Shyann, indicated that she was able to transfer patient. Patient was sitting up in her chair. P.T. was going to work with patient. Sylvie at [facility], had indicated, they can't accept patient secondary to language barrier. Have not yet heard back from [facility], and [facility] was faxed. Insurance auth for [facility] would also need to be obtained. Spoke to patient's grand daughter, Ariana. She wanted to know if a place was found?. Let her know that there has been attempts to locate facilities, but have not been able to secure a facility. Let her know that she may need to go home with home health. She asked, is she ready to be discharged? Let her know that she is most likely ready from a medical stand point. Asked her if she could take patient home today. She indicated, she can't, her house is a mess, and is not prepared to take her. She also stated that she has 3 children. Ariana wanted to know if we could check the [place] area. Let her know that care management can check, and make some calls today. Let her know that this child welfare caseworker will call her this afternoon after the calls are made. If unable to get responses, or if they are full, asked her to attempt to prepare for her to take her home tomorrow. Mentioned home healths services and what they can provide as well. Asked her if it would help if care management can work on transport, since she lives in a split level home, and has stairs to get on to main level. She indicated, that would be helpful. P: DCP to continue to follow. Will check on alternate facilities today, [facility], and some in [place]. Will also follow up with [facility], and [facility], since they have been sent referrals. Will also check in with daughter at the end of the day to attempt home plan with home health. Lilly Triana RN/[employer] Salesperson
[2021-04-07] MEDS: BISACODYL 5 MG TABLET PO (10:46)
[2021-04-07] MEDS: polyethylene glycoL 3350 17 GM POWD.PACK PO (10:46)
--- NOTE | 2021-04-07 12:12 | CM.DPC ---
DCP continued: [facility] [phone] and [facility] for admission and faxed clinicals for their review. [facility] does not have admission staff on weekends or holidays. so they will not review clinicals until Friday. Called [facility] at [phone] [facility] for admissions and faxed clinicals for their review. Called [facility] - No admissions on weekends or holidays- sent fax with clinicals for thier review - [facility] [phone] Called [facility] and [facility] - [phone] no Fax number to send clinicals to so will attempt to call again Antionette Calabrese RN
--- NOTE | 2021-04-07 14:02 | PM.PN.1 ---
Subjective Subjective Date Patient Seen: 04/07/21 Time Patient Seen: 14:03 Interval history: The patient is an 85-year-old Estonian-speaking female who presented to the hospital following a fall.? Patient suffered a left hip fracture and had surgical management. She denies chest pain, nausea, vomiting, abdominal pain. No shortness of breath. Has not had a bowel movement in multiple days. Pain reported 5-6/10 in hip. Exam Vital Signs (past 8 hours): - 04/07/21 07:45 04/07/21 07:47 04/07/21 07:54 Temperature 96.8 F L Pulse Rate 73 Respiratory Rate 16 Blood Pressure 142/66 H Pulse Oximetry 94 94 95 04/07/21 08:43 04/07/21 12:04 Temperature 97.4 F L Pulse Rate 75 Respiratory Rate 15 Blood Pressure 142/66 H 140/74 Pulse Oximetry 96 Oxygen Delivery Method Room Air Oxygen Flow Rate 0 Narrative Exam Narrative: Pleasant female lying in bed who appears comfortable Resp Other:?Lungs clear to auscultation Cardio Other:?Cardiac exam: Regular rate and rhythm normal S1-S2 GI Other:?Abdomen:? Soft nontender nondistended Skin Other:?Left leg with chronic venous stasis changes Extrem Other:?L leg dressing c/d/i. Objective Labs Result Diagrams: 04/07/21 05:17 04/04/21 04:40 Labs: Laboratory Results - last 24 hr 04/07/21 05:17 WBC 5.0 RBC 4.24 Hgb 12.6 Hct 38.2 MCV 90.2 MCH 29.8 MCHC 33.1 RDW 13.8 Plt Count 130 L Neut % (Auto) 58.7 Lymph % (Auto) 22.6 L [place] % (Auto) 14.5 H Eos % (Auto) 3.3 Baso % (Auto) 0.9 Neut # (Auto) 3000 Lymph # (Auto) 1100 [place] # (Auto) 700 Eos # (Auto) 200 Baso # (Auto) 0 PFSH Surgical History Hx of hernia repair Family History Mother Breast CA Father Medical history unknown Social History household members: family and children Smoking Status: Never smoker Assessment & Plan Assessment & Plan narrative: ?Shiraz Vizcaino is admitted as an inpatient for surgical repair of a closed left intertrochanteric hip fracture. 1.? Closed left intertrochanteric hip fracture, acute, present on admission Doing well after surgery. Continue PT/OT and pain control. Awaiting SNF. DVT ppx per orthopedics. increase laxitive therapy today 2. Essential hypertension, poorly controlled likely due to pain, present on admission blood pressure poorly controlled, started amlodipine 5 mg daily in addition to losartan. Continue to adjust as needed moving forward. 3. asymptomatic bacteruia, less likely acute cystitis. ?- patient with positive urine cultures. Questionable symptoms on admission. Received at least 3 days of antibiotics on admission and over her stay with orthopedics. No further treatment is needed Code: Full, surrogate is patient's grand-daughter Dispo: probable SNF, family requesting SNF at this time. Will see how she progresses with PT. Time Spent With Patient Critical Care time: I spent a total of [] minutes of critical care time on this patient's care today; this time is exclusive of procedural time. Quality VTE Deep Vein Thrombosis/Pulmonary Embolism Present on Admission: No
--- NOTE | 2021-04-07 14:03 | PT.IPTN ---
Addendum entered and electronically signed by Radha Jean, RIKKI 04/07/21 15:29: informed case hardener that OT eval is needed. Original Note: Addendum entered and electronically signed by Radha Jean, PT 04/07/21 15:24: surface water manager Magda came in and informed PT that she has set up caregiver training for pt tomorrow at 11am. Magda stated that pt's grand daughter is willing to take pt home. informed Magda that pt is still requiring max A with mobility and is only able to ambulate 30 ft using FWW at this time and per pt, grand daugther will not be able to assist her much due to the grand daughter having to take care of 3 children. also informed that pt has 10 steps to enter the house and is not appropriate to do stair climbing training at this time. informed case hardener that caregiver training appointment will be passed to tomorrow's PT to assess appropriateness and safety for caregiver training. Original Note: Current Diagnoses Age-related osteoporosis with current pathological fracture, unspecified femur, initial encounter for fracture (04/03/21) Displaced intertrochanteric fracture of left femur, initial encounter for closed fracture (04/03/21) Surgery Performed Operation Date: 04/04/21 17:45 Actual Procedures p IMN IT FX Hip(Left) - Lola Walters MD Physical Therapy Treatment Note M2 PT-IP Current Condition Start: 04/05/21 13:52 Freq: NEEDED Status: Active Protocol: Document 04/05/21 11:45 AB (Rec: 04/05/21 14:07 AB [id number]) Physical Therapy Current Condition Current Condition Evaluation Date 04/05/21 Treatment Diagnosis L hip intertrochanteric fx s/p nailing; difficulty in walking Onset Date 04/03/21 Weight Bearing Status Weight Bearing Status Weight Bear as Tolerated Allowed Weight Bearing Amount (enter % LLE WBAT or #) (%) M3 PT-IP Subjective Start: 04/05/21 13:52 Freq: NEEDED Status: Active Protocol: Document 04/07/21 14:03 AB (Rec: 04/07/21 14:41 AB [id number]) Subjective Physical Therapy Visit Type Type Treatment Note Visit Start Time 14:03 Visit Stop Time 14:26 Total Visit Minutes 23 Number of BUDGET TECHNICIAN Visits 0 Physical Therapy Visit Comments Patient Comments requested to use the toilet Therapy Pain Assessment Pain When Pain Assessed At Rest Pain Present Pain Present Pain Reported Location left hip\ Scale Used pain scale not stated Pain Management Techniques Distraction,Modification of Treatment,Re-positioning, Timing of Activity with Medications M4 PT-IP Mobility and Gait Start: 04/05/21 13:52 Freq: NEEDED Status: Active Protocol: Document 04/07/21 14:03 AB (Rec: 04/07/21 14:41 AB [id number]) PT-Bed Mobility Assessment Supine to Sit Supine to Sit Maximum Assistance,Head of Bed Elevated Sit to Supine Sit to Supine Maximum Assistance,1 Person Assistance Scooting Scooting to Edge of Bed Maximum Assistance PT-Transfer Assessment Sit to and From Stand Sit to and from Stand Moderate Assistance,1 Person Assistance,Use of Upper Extremities Equipment Transfer Assistive Device Front Wheeled Walker Orthotic/Prosthetic Devices or Brace: No Transfers Transfer Destination Toilet Transfer Technique ambulated Transfer Ability Level of Assist Moderate Assistance,1 Person Assistance,Use of Upper Extremities Comments Mobility Comments completed supine to sit max A and max cues with HOB elevated . requested to use the toilet . completed sit to stand mod A and ambulated to the toilet ~ 10 ft using FWW mod A and cues. required mod A for standing balance and assist with hygiene care and brief management. completed ambulation from toilet to the sink using FWW mod A and cues. pt tends to push FWW too far forward. completed hand washing by the sink mod A for standing balance and pt leaning on counter. ambulated from sink to the bed 10 ft using FWW mod A. pt sat on EOB and wants to just rest and does not want to do any more ambulation. completed sit to supine max A with BLE elevation to bed. positioned on the bed. call light and table placed within reach. Gait Assessment Gait Gait Assistance Required: Moderate Assistance,1 Person Assist Distance (Feet) 10 Able to Maintain Weight Bearing Status Yes During Gait Assistive Devices Assistive Device Gait Belt,Front Wheeled Walker Orthotic/Prosthetic Devices or Brace: No Gait Deviations General Gait Pattern Antalgic,Decreased Stride Length,Decreased Feet Clearance,Step-to Gait Factors Limiting Gait Function Factors Limiting Gait Function Decreased Activity Tolerance, Decreased Strength,Difficulty Following Directions,Limited Range of Motion,Pain,Poor Balance,Poor Safety Awareness, Respiratory Distress Comments Gait Comments pls refer to mobility section for details M5 PT-IP Objective Assessments Start: 04/05/21 13:52 Freq: NEEDED Status: Active Protocol: Document 04/05/21 11:45 AB (Rec: 04/05/21 14:07 AB [id number]) Orientation Orientation/Cognition Level of Alertness Alert Language Function Ability Hard of Hearing Safety Awareness Decreased Safety Awareness Gross Range of Motion Lower Extremity ROM Impairments LLE increase muscle guarding with ROM and c/o increase pain Strength Lower Extremity Strength Assessment Left Impaired Hip 3-/5 Knee 3-/5 Sensation Assessment Sensation Gross Sensation WNL Muscle Tone Muscle Tone WNL Yes M6 PT-IP Treatment Start: 04/05/21 13:52 Freq: NEEDED Status: Active Protocol: Document 04/07/21 14:03 AB (Rec: 04/07/21 14:41 AB [id number]) Physical Therapy Treatment Education Education Provided Safety M7 PT-IP Assessment and Plan Start: 04/05/21 13:52 Freq: NEEDED Status: Active Protocol: Document 04/07/21 14:03 AB (Rec: 04/07/21 14:41 AB [id number]) PT Summary Assessment and Plan Potential Rehabilitation Potential Good Summary Impairments Pain,ROM,Strength,Balance, Coordination,Sensation,Tone, Cognition,Bed Mobility, Transfers,Gait,Activity Tolerance Progress Towards Goals Slow Progress due to Pain,Slow Progress due to Activity Tolerance Assessment Summary pt progressing slowly with mobility but continues to have decrease activity tolerance affecting independence. pt will require SNF rehab to improve strength and mobility. Goals Bed Mobility Goal Standby Assistance Transfer Goal Standby Assistance,Front Wheeled Walker Gait Goal Standby Assistance,Front Wheel Walker Gait Distance 150 Other Goals up/down 10 steps L rail SBA Days to Meet Goals 10 Frequency of Treatment Frequency Of Treatment Twice a Day Treatment Plan Physical Therapy Treatment Plan Bed Mobility Training,Transfer Training,Gait Training, Therapeutic Exercise,Balance Retraining,Post Op Education, Discharge Planning,Hot or Cold Pack,Neuromuscular Re-ed, Coordination Retraining,Manual Therapy Precautions Other Precautions LLE WBAT Recommendations To Nursing Amount of Assist Needed 1 Person Assist Discharge Recommendations PT Discharge Recommendations SNF Rehab Equipment Needed for Home Before FWW if pt goes home Discharge Transportation Needs at Discharge Wheelchair/Cabulance
--- NOTE | 2021-04-07 14:19 | PC.NURSE ---
Shift note: assisted pt up to chair this morning for breakfast- 1 person assist with walker. Rated pain 5 on pain scale of 1-10. Tylenol given with morning meds. Dressing to left hip remains c/d/i. [place] hospice administrator used for all communication. Started pt on Miralax and Bisacodyl PO since pt with no BM since 04/03. Pt rated her pain 5 on pain scale about 1 hour after tylenol given. Pt stated through hospice administrator that she did not want any more pain medication at that time. Now resting comfortably in bed. No reports of BM yet.
--- NOTE | 2021-04-07 14:42 | PC.NURSE ---
Pt able to have small BM just now per BRAIN Melgar.
--- NOTE | 2021-04-07 15:13 | CM.DPC ---
Addendum entered by Lilly Triana R.N. 04/07/21 15:43: Called [facility], spoke to Brandi, and she indicated that they do not work with [employer]. Called Mary at [facility], they also do not accept [employer]. Called [facility], left a message on Suleman Cifuentes's cell phone inquiring if they take [employer], and the main number. Went ahead and faxed referral over to [facility]. Will need to ask grand daughter who patient's primary care provider is. Will see if she is deemed safe to discharge tomorrow with the therapy team. Original Note: DCP Cont: Called grand daughter, Ariana, regarding attempting to locate facilities. Let her know that care management has been unable to locate a facility for her, and may not know until at least Friday. Discussed going home, and she is able to consider taking her home, with home health. Discussed [facility] caregivers, explained what [facility] is. She mentioned, she is interested, and would like to see what she needs to do to become a [facility] caregiver. Let her know that information can be given to her, [employer], and [facility] application. Also, let her know that this case management manager can set up home health for her grandmother. Grand daughter already indicated that she has a wheel-chair for her grandmother at home. Have a face to face signed. Will go ahead and order [facility] to start the process, and will fax orders, face to face. Ariana indicated that she can be here after 11:00am tomorrow for caregiver training. Will need to notify P.T. Spoke to Lennie, physical therapist. Let her know, but she indicated that they have to evaluate whether patient is safe for caregiver training due to the stairs in the home, and if home is safe for her. Will still go ahead and plan on grand daughter coming, will still need O.T. orders. Will place orders. P: DCP to continue to follow. Will initiate home health with [facility]. Grand daughter will be here after 11:00am, but will need to see if she is safe for home. Other options are [facility] does not take [employer], nor does [facility]. [place] facilities have been contacted, as well as [facility] is reviewing. Lilly Triana RN/Compliance Engineer
--- NOTE | 2021-04-07 19:53 | PC.NURSE ---
Report per day shift RN: no IV access is ok'd by surgeon. (all following info is confirmed by use of overweaver: Telugu to Lebanese) Patient is alert/oriented. Lebanese speaking. able to get to EOB w/ min-mod 1pa, uses FWW, tolerated ambulating to bathroom w/ slow steady gait. WBAT. pullup saturated w/ urine, new one placed, socks and gown changed. assisted back to bed, she requested to stop at the recliner chair as she fatigued easily on her way back to bed. able to push self up in bed, dressing to Left hip ORIF is CDI. scant dry drainage noted on dressing, no changes toward end of shift. +CSM checks, + pedal/tibial pulses. declined offer of apap and/or oxy at HS. accepted ice pack on L hip, ice water. declined SCD's. plan for PT/OT eval/treat, and possible d/c to SNF. Bed alarm is on. call light w/in reach.
[2021-04-08] VITALS (10 sets, daily range): BP systolic 133–159; BP diastolic 73–84; PULSE 74–83; RESP 16–20; TEMP 36.2–37; O2SAT 93–96
[2021-04-08] MEDS: OXYCODONE IR 5 MG TABLET PO ×2 (00:14→14:37)
--- NOTE | 2021-04-08 01:46 | PC.NURSE ---
Patient is alert and oriented. Haitian speaking only so assessment completed with use of donor services technician phone. Breath sounds CTA with RA sat of 94%. HRR. BP trends high and was 144/84 at time of assessment. Denied nausea. BT present and abdomen is soft. Denies dysuria, frequency or urgency following catheter removal. Is able to move self in bed and when out of bed is needing to use walker and 1 assist. Dressings to left lateral LE are intact with shadow drainage on each. CMS is intact. States pain in left leg is 5/10 and agreeable to taking pain medication so medicated with oxycodone and is currently asleep; ice pack also applied. Refused SCD's so reminded to ankle wave when awake. Fall risk score is high and bed alarm is activated.
[2021-04-08 05:51] LABS: Add Manual Diff / Slide Review NO; Basophils Absolute Auto 0 /uL (0-100); Eosinophils Absolute Auto 200 /uL (0-450); Eosinophils Percent Auto 4.6 % (2-4); Hematocrit 39.3 % (36-46); Hemoglobin 12.9 g/dL (12.0-16.0); Lymphocytes Absolute Auto 1000 /uL (1100-4500); Mean Corpuscular HGB Conc 32.9 % (30-36); Mean Corpuscular Hemoglobin 29.7 PG (26-34); Mean Corpuscular Volume 90.2 fL (80-100); Monocytes Absolute Auto 700 /uL (0-900); Neutrophils Absolute Auto 2200 /uL (1500-7000); Neutrophils Percent Auto 53.4 % (50-75); Platelet Count 154 X10^3/uL (150-400); Red Blood Cell Count 4.35 X10^6/uL (4.0-5.2); Red Cell Distribution Width 13.7 % (11.6-14.8); White Blood Cell Count 4.2 X10^3/uL (4.5-11.0)
[2021-04-08] MEDS: LOSARTAN 50 MG TABLET PO (08:44)
[2021-04-08] MEDS: polyethylene glycoL 3350 17 GM POWD.PACK PO (08:44)
[2021-04-08] MEDS: DOCUSATE 100 MG CAPSULE PO ×2 (08:44→19:17)
[2021-04-08] MEDS: ENOXAPARIN 40 MG/0.4 ML SYRINGE SUBCUT (08:44)
[2021-04-08] MEDS: AMLODIPINE 5 MG TABLET PO (08:45)
--- NOTE | 2021-04-08 08:56 | PM.PNPO.1 ---
Subjective Subjective Date Patient Seen: 04/08/21 Time Patient Seen: 08:56 Interval history: Patient postoperative day 4. Of a left proximal femur fracture status post intramedullary fixation. Patient resting comfortably this morning. Exam Vital Signs (past 8 hours): - 04/08/21 05:45 04/08/21 08:22 04/08/21 08:44 Temperature 97.8 F 97.1 F L Pulse Rate 74 77 Respiratory Rate 16 16 Blood Pressure 159/78 H 155/80 H 159/78 H Pulse Oximetry 96 95 Oxygen Delivery Method Room Air Oxygen Flow Rate 0 Narrative Exam Narrative: Dressing clean and dry. Positive dorsiflexion and plantar flexion. Nontender to palpation the posterior aspect of the calf. Objective Labs Result Diagrams: 04/08/21 05:27 04/04/21 04:40 Labs: Laboratory Results - last 24 hr 04/08/21 05:27 WBC 4.2 L RBC 4.35 Hgb 12.9 Hct 39.3 MCV 90.2 MCH 29.7 MCHC 32.9 RDW 13.7 Plt Count 154 Neut % (Auto) 53.4 Lymph % (Auto) 24.0 L [place] % (Auto) 17.0 H Eos % (Auto) 4.6 H Baso % (Auto) 1.0 Neut # (Auto) 2200 Lymph # (Auto) 1000 L [place] # (Auto) 700 Eos # (Auto) 200 Baso # (Auto) 0 PFSH Surgical History Hx of hernia repair Family History Mother Breast CA Father Medical history unknown Social History household members: family and children Smoking Status: Never smoker Assessment & Plan Post-op Postoperative Procedures: Procedures Operation Date: 04/04/21 17:45 Actual Procedure Side Surgeon arvind CALLAHAN IT FX Hip Left Lola Walters MD Postoperative day: 4 Postoperative status: doing well Postoperative status narrative: Current pain management regimen is to be continued as it is adequately controlled the patient's pain level. Patient is to remain weight-bearing as tolerated with the assistance of a front wheeled walker with physical therapy. Sequential compression devices and Lovenox will be used for DVT prophylaxis. Lovenox should be continued for 4 total weeks or 28 total days with 40 mg subcutaneous injections administered daily. Patient will be discharged when she has been cleared by Medicine. Patient likely to be transferred to [facility] facility pending facility acceptance. Quality VTE Deep Vein Thrombosis/Pulmonary Embolism Present on Admission: No
--- NOTE | 2021-04-08 10:29 | PT.IPTN ---
Current Diagnoses Age-related osteoporosis with current pathological fracture, unspecified femur, initial encounter for fracture (04/03/21) Displaced intertrochanteric fracture of left femur, initial encounter for closed fracture (04/03/21) Surgery Performed Operation Date: 04/04/21 17:45 Actual Procedures p IMN IT FX Hip(Left) - Lola Walters MD Physical Therapy Treatment Note M2 PT-IP Current Condition Start: 04/05/21 13:52 Freq: NEEDED Status: Active Protocol: Document 04/05/21 11:45 AB (Rec: 04/05/21 14:07 AB [id number]) Physical Therapy Current Condition Current Condition Evaluation Date 04/05/21 Treatment Diagnosis L hip intertrochanteric fx s/p nailing; difficulty in walking Onset Date 04/03/21 Weight Bearing Status Weight Bearing Status Weight Bear as Tolerated Allowed Weight Bearing Amount (enter % LLE WBAT or #) (%) M3 PT-IP Subjective Start: 04/05/21 13:52 Freq: NEEDED Status: Active Protocol: Document 04/08/21 10:29 AW (Rec: 04/08/21 11:53 AW [id number]) Subjective Physical Therapy Visit Type Type Treatment Note Visit Start Time 10:11 Visit Stop Time 10:29 Total Visit Minutes 18 Notes Interpretation provided via phone service. Number of DINKEY SKINNER Visits 0 Physical Therapy Visit Comments Patient Comments I had a shower this morning and am feeling so much better. Therapy Pain Assessment Pain When Pain Assessed During Mobility Pain Present Pain Present Pain Reported Location left hip\ Scale Used Numeric (0 - 10) Pain Management Techniques Distraction,Modification of Treatment,Re-positioning, Timing of Activity with Medications M4 PT-IP Mobility and Gait Start: 04/05/21 13:52 Freq: NEEDED Status: Active Protocol: Document 04/08/21 10:29 AW (Rec: 04/08/21 11:53 AW [id number]) PT-Transfer Assessment Sit to and From Stand Sit to and from Stand Moderate Assistance,1 Person Assistance,Use of Upper Extremities Equipment Transfer Assistive Device Gait Belt,Front Wheeled Walker Orthotic/Prosthetic Devices or Brace: No Transfers Transfer Destination Chair Transfer Technique ambulated Transfer Ability Level of Assist Moderate Assistance,1 Person Assistance,Use of Upper Extremities Comments Mobility Comments Pt was sitting up on chair as PT arrived. Via phone parboiler, pt agreed to get up. She scooted herself forward on the chair, grimacing with some pain. She stood mod A x 1 and used FWW to ambulate 25 feet in the room mod A x 1 before sitting on the chair again. Pt stood and ambulated another 15 feet before requesting rest on the chair. Gait Assessment Gait Gait Assistance Required: Moderate Assistance,1 Person Assist Distance (Feet) 25 Able to Maintain Weight Bearing Status Yes During Gait Assistive Devices Assistive Device Gait Belt,Front Wheeled Walker Orthotic/Prosthetic Devices or Brace: No Gait Deviations General Gait Pattern Antalgic,Decreased Stride Length,Decreased Feet Clearance,Step-to Gait Factors Limiting Gait Function Factors Limiting Gait Function Decreased Activity Tolerance, Decreased Strength,Difficulty Following Directions,Limited Range of Motion,Pain,Poor Balance,Poor Safety Awareness, Respiratory Distress Comments Gait Comments Pt ambulates with step-to antalgic gait and gait quality does degrade with increased distance. M5 PT-IP Objective Assessments Start: 04/05/21 13:52 Freq: NEEDED Status: Active Protocol: Document 04/05/21 11:45 AB (Rec: 04/05/21 14:07 AB [id number]) Orientation Orientation/Cognition Level of Alertness Alert Language Function Ability Hard of Hearing Safety Awareness Decreased Safety Awareness Gross Range of Motion Lower Extremity ROM Impairments LLE increase muscle guarding with ROM and c/o increase pain Strength Lower Extremity Strength Assessment Left Impaired Hip 3-/5 Knee 3-/5 Sensation Assessment Sensation Gross Sensation WNL Muscle Tone Muscle Tone WNL Yes M6 PT-IP Treatment Start: 04/05/21 13:52 Freq: NEEDED Status: Active Protocol: Document 04/08/21 10:29 AW (Rec: 04/08/21 11:53 AW [id number]) Physical Therapy Treatment Education Education Provided Safety M7 PT-IP Assessment and Plan Start: 04/05/21 13:52 Freq: NEEDED Status: Active Protocol: Document 04/08/21 10:29 AW (Rec: 04/08/21 11:53 AW [id number]) PT Summary Assessment and Plan Potential Rehabilitation Potential Good Summary Impairments Pain,ROM,Strength,Balance, Coordination,Sensation,Tone, Cognition,Bed Mobility, Transfers,Gait,Activity Tolerance Progress Towards Goals Slow Progress due to Pain,Slow Progress due to Activity Tolerance Assessment Summary Pt progressing slowly. She is highly motivated and shows good effort with all activity. PT asked pt via phone parboiler about her preference for discharge plan. Pt indicated concern that her granddaughter has small children and would not be able to help at all times. She expressed preference for subacute rehab setting to get stronger so I can go home. Goals Bed Mobility Goal Standby Assistance Transfer Goal Standby Assistance,Front Wheeled Walker Gait Goal Standby Assistance,Front Wheel Walker Gait Distance 150 Other Goals up/down 10 steps L rail SBA Days to Meet Goals 10 Frequency of Treatment Frequency Of Treatment Twice a Day Treatment Plan Physical Therapy Treatment Plan Bed Mobility Training,Transfer Training,Gait Training, Therapeutic Exercise,Balance Retraining,Post Op Education, Discharge Planning,Hot or Cold Pack,Neuromuscular Re-ed, Coordination Retraining,Manual Therapy Precautions Other Precautions LLE WBAT Recommendations To Nursing Amount of Assist Needed 1 Person Assist Discharge Recommendations PT Discharge Recommendations SNF Rehab Equipment Needed for Home Before FWW if pt goes home Discharge Transportation Needs at Discharge Wheelchair/Cabulance
--- NOTE | 2021-04-08 12:59 | PT.IPTN ---
Current Diagnoses Age-related osteoporosis with current pathological fracture, unspecified femur, initial encounter for fracture (04/03/21) Displaced intertrochanteric fracture of left femur, initial encounter for closed fracture (04/03/21) Surgery Performed Operation Date: 04/04/21 17:45 Actual Procedures p IMN IT FX Hip(Left) - Lola Walters MD Physical Therapy Treatment Note M2 PT-IP Current Condition Start: 04/05/21 13:52 Freq: NEEDED Status: Active Protocol: Document 04/05/21 11:45 AB (Rec: 04/05/21 14:07 AB [id number]) Physical Therapy Current Condition Current Condition Evaluation Date 04/05/21 Treatment Diagnosis L hip intertrochanteric fx s/p nailing; difficulty in walking Onset Date 04/03/21 Weight Bearing Status Weight Bearing Status Weight Bear as Tolerated Allowed Weight Bearing Amount (enter % LLE WBAT or #) (%) M3 PT-IP Subjective Start: 04/05/21 13:52 Freq: NEEDED Status: Active Protocol: Document 04/08/21 12:59 AW (Rec: 04/08/21 14:16 AW [id number]) Subjective Physical Therapy Visit Type Type Treatment Note Visit Start Time 12:35 Visit Stop Time 12:59 Total Visit Minutes 24 Notes Pt's granddaughter, Myrna, was present throughout treatment and provided interpretation Number of ENGINEER G[employer] PU[employer]ING [employer]ATION Visits 0 Physical Therapy Visit Comments Patient Comments Pt is willing to participate with PT Patient Goals Go to rehab to get stronger and ultimately go home with granddaughter assist. Therapy Pain Assessment Pain When Pain Assessed During Mobility Pain Present Pain Present Pain Reported Location left hip\ Scale Used not quantified Pain Behaviors Facial Grimacing,Guarding, Wincing Pain Management Techniques Distraction,Modification of Treatment,Re-positioning, Timing of Activity with Medications M4 PT-IP Mobility and Gait Start: 04/05/21 13:52 Freq: NEEDED Status: Active Protocol: Document 04/08/21 12:59 AW (Rec: 04/08/21 14:16 AW [id number]) PT-Transfer Assessment Sit to and From Stand Sit to and from Stand Moderate Assistance,1 Person Assistance,Use of Upper Extremities Equipment Transfer Assistive Device Gait Belt,Front Wheeled Walker Orthotic/Prosthetic Devices or Brace: No Transfers Transfer Destination Chair Transfer Technique ambulated with FWW Transfer Ability Level of Assist Moderate Assistance,1 Person Assistance,Use of Upper Extremities Comments Mobility Comments Pt was sitting up in chair as PT arrived. She agreed to get up, standing from the chair mod assist. She ambulated around the room a total of 30 feet with FWW mod A, transferred back to the chair, stood again and walked another 30 feet in similar fashion. Gait quality remains antalgic with heavy UE weightbearing on the walker. She returned to the chair and completed seated exercise. PT left pt with her granddaughter in the room, call light and tray table in reach. Gait Assessment Gait Gait Assistance Required: Moderate Assistance,1 Person Assist Distance (Feet) 30 Able to Maintain Weight Bearing Status Yes During Gait Assistive Devices Assistive Device Gait Belt,Front Wheeled Walker Orthotic/Prosthetic Devices or Brace: No Gait Deviations General Gait Pattern Antalgic,Decreased Stride Length,Decreased Feet Clearance,Step-to Gait Factors Limiting Gait Function Factors Limiting Gait Function Decreased Activity Tolerance, Decreased Strength,Difficulty Following Directions,Limited Range of Motion,Pain,Poor Balance Comments Gait Comments Gait quality continues to degrade with increased distance requiring min and up to mod assist. M5 PT-IP Objective Assessments Start: 04/05/21 13:52 Freq: NEEDED Status: Active Protocol: Document 04/05/21 11:45 AB (Rec: 04/05/21 14:07 AB [id number]) Orientation Orientation/Cognition Level of Alertness Alert Language Function Ability Hard of Hearing Safety Awareness Decreased Safety Awareness Gross Range of Motion Lower Extremity ROM Impairments LLE increase muscle guarding with ROM and c/o increase pain Strength Lower Extremity Strength Assessment Left Impaired Hip 3-/5 Knee 3-/5 Sensation Assessment Sensation Gross Sensation WNL Muscle Tone Muscle Tone WNL Yes M6 PT-IP Treatment Start: 04/05/21 13:52 Freq: NEEDED Status: Active Protocol: Document 04/08/21 12:59 AW (Rec: 04/08/21 14:16 AW [id number]) Physical Therapy Treatment Exercises Exercises Ankle Pumps,Quad Sets,Heel Slides,Straight Leg Raises Education Education Provided Safety Other Treatments Other Treatment Performed Pt performed AP, QS bilaterally. Heel slides and SLR for RLE were unassisted. AAROM for heel slide LLE. Educated pt and her granddaughter on level of assist required for safe mobility at this time. Both agree SNF rehab is most appropriate option for pt at this time. M7 PT-IP Assessment and Plan Start: 04/05/21 13:52 Freq: NEEDED Status: Active Protocol: Document 04/08/21 12:59 AW (Rec: 04/08/21 14:16 AW [id number]) PT Summary Assessment and Plan Potential Rehabilitation Potential Good Summary Impairments Pain,ROM,Strength,Balance, Coordination,Sensation,Tone, Cognition,Bed Mobility, Transfers,Gait,Activity Tolerance Progress Towards Goals Slow Progress due to Pain,Slow Progress due to Activity Tolerance Assessment Summary Pt continues to require mod assist with all mobility. She lives with her granddaughter who had a baby in March and would be unable to provide adequate assist at home. Pt requires SNF rehab to progress her strength and mobility independence. Goals Bed Mobility Goal Standby Assistance Transfer Goal Standby Assistance,Front Wheeled Walker Gait Goal Standby Assistance,Front Wheel Walker Gait Distance 150 Other Goals up/down 10 steps L rail SBA Days to Meet Goals 10 Frequency of Treatment Frequency Of Treatment Twice a Day Treatment Plan Physical Therapy Treatment Plan Bed Mobility Training,Transfer Training,Gait Training, Therapeutic Exercise,Balance Retraining,Post Op Education, Discharge Planning,Hot or Cold Pack,Neuromuscular Re-ed, Coordination Retraining,Manual Therapy Precautions Other Precautions LLE WBAT Recommendations To Nursing Amount of Assist Needed 1 Person Assist Discharge Recommendations PT Discharge Recommendations SNF Rehab Equipment Needed for Home Before FWW if pt goes home Discharge Transportation Needs at Discharge Wheelchair/Cabulance
[2021-04-08] MEDS: ACETAMINOPHEN 325 MG TABLET 650 MG PO (14:33)
--- NOTE | 2021-04-08 14:58 | CM.DPC ---
DCP Ongoing SNF planning: Per MD, pt making progress and awaiting either SNF placement vs progress with PT and CG training towards return home with HH. SW confirmed [facility], and [facility] are all NOT contracted with [employer] and cannot accept pt referral. Chance that [facility] may still do home PT sessions but not open over the weekend or holiday Friday. SW followed up with the SNF's previously referred to by DCP yesterday: [facility]- faxed referral, left another msg inquiring if they can accept. [facility]- no current openings but will continue to review to see if they can accept. [facility]- declined due to barrier of language at this time. [facility]- faxed, no admissions over the weekend or holiday. SW left another msg to see if they reviewed. [facility]- faxed, left msg again to see if they have reviewed. [facility]- faxed, no admits over the weekend, left another msg [facility]- no admissions this weekend or holiday, unsure if they are contracted with [employer] but will send email to their admissions person. [facility]: no admits this weekend, unsure if still contracted, faxed to [phone] [place] [place] [facility]: no admits this weekend, unsure if still contracted, faxed to [phone] [facility] completed. Per PT, still recommending SNF at this time as pt unable to participate in stairs and significant assist needed. Not safe for home yet and no HH available at this time due to insurance. Pt also requesting SNF prior to d/c home. Loan Lane requested Medicaid GRETEL application and BARRY met with her and provided application and discussed and Ariana confirms if pt approved for GRETEL then she would be willing to be trained to be her GRETEL CG and would quit her job. BARRY provided contact info for [facility] so Ariana can gather further information and discussed will need to see if pt approved, how many hours she qualifies for after initial assessment, etc.. Updated Ariana on continued attempt at SNF and ongoing barriers of insurance auth need and holiday weekend with insurance closed and SNF admissions out of office. BARRY discussed if pt progresses while here still possible d/c home if no SNF secured. Plan: SW to follow closely tomorrow to determine if any SNF admissions staff available and if anyone from [facility] could be contacted on a Holiday. JOSE ALFREDO Torres
--- NOTE | 2021-04-08 15:24 | PC.NURSE ---
Shift note: pt grand daughter Ariana in today. Ariana and patient would really like for patient to go to a SNF vs home with home care. Grand daughter just had a baby. There are 10 steps to get into house. PT did not feel patient was ready to try the stairs yet. Medicated for pain with tylenol and Oxycodone. Pt declined AM pain meds. Up in chair for most of day, showered. Had a BM; discharge planning continues. Hope for possible SNF placement on Friday. Dressings to left hip are c/d/i with minimal shadow drainage. Able to communicate through help of grand daughter and helper/driver services.
--- NOTE | 2021-04-08 15:25 | P.PN_ITS ---
Subjective Subjective Date Patient Seen: 04/08/21 Time Patient Seen: 15:25 Interval history: The patient is an 85-year-old New Zealander-speaking female who presented to the hospital following a fall.? Patient suffered a left hip fracture and had surgical management. No complaints. Exam Vital Signs (past 8 hours): - 04/08/21 08:22 04/08/21 08:44 04/08/21 12:00 Temperature 97.1 F L 97.6 F Pulse Rate 77 83 Respiratory Rate 16 18 Blood Pressure 155/80 H 159/78 H 133/80 Pulse Oximetry 95 94 Oxygen Delivery Method Room Air Oxygen Flow Rate 0 Narrative Exam Narrative: Pleasant female lying in bed who appears comfortable Resp Other:?Lungs clear to auscultation Cardio Other:?Cardiac exam: Regular rate and rhythm normal S1-S2 GI Other:?Abdomen:? Soft nontender nondistended Skin Other:?Left leg with chronic venous stasis changes Extrem Other:?L leg dressing c/d/i. Objective Labs Result Diagrams: 04/08/21 05:27 04/04/21 04:40 Labs: Laboratory Results - last 24 hr 04/08/21 05:27 WBC 4.2 L RBC 4.35 Hgb 12.9 Hct 39.3 MCV 90.2 MCH 29.7 MCHC 32.9 RDW 13.7 Plt Count 154 Neut % (Auto) 53.4 Lymph % (Auto) 24.0 L Titus % (Auto) 17.0 H Eos % (Auto) 4.6 H Baso % (Auto) 1.0 Neut # (Auto) 2200 Lymph # (Auto) 1000 L Titus # (Auto) 700 Eos # (Auto) 200 Baso # (Auto) 0 PFSH Surgical History Hx of hernia repair Family History Mother Breast CA Father Medical history unknown Social History household members: family and children Smoking Status: Never smoker Assessment & Plan Assessment & Plan narrative: Shiraz Vizcaino is admitted as an inpatient for surgical repair of a closed left intertrochanteric hip fracture. 1.? Closed left intertrochanteric hip fracture, acute, present on admission * Doing well after surgery. Continue PT/OT and pain control. Awaiting SNF. * DVT ppx per orthopedics. 2. Essential hypertension, poorly controlled likely due to pain, present on admission * blood pressure poorly controlled, started amlodipine 5 mg daily in addition to losartan. Continue to adjust as needed moving forward. 3. asymptomatic bacteruia, less likely acute cystitis. ?- patient with positive urine cultures. Questionable symptoms on admission. Received at least 3 days of antibiotics on admission and over her stay with orthopedics. No further treatment is needed Code: Full, surrogate is patient's grand-daughter Dispo: family requesting SNF at this time, may need home with home health, cindy [facility] awaiting insurance authorization. Will see how she progresses with PT. Time Spent With Patient Critical Care time: I spent a total of [] minutes of critical care time on this patient's care today; this time is exclusive of procedural time. Quality VTE Deep Vein Thrombosis/Pulmonary Embolism Present on Admission: No
[2021-04-08] MEDS: SENNOSIDES 8.6 MG TABLET 17.2 MG PO (19:17)
--- NOTE | 2021-04-08 20:51 | PC.NURSE ---
patient verbalized she would like to be called Katheryn. alert, oriented. conversations are happening due to Anguillan speaking junior accountant service. patient has improved since yesterday, she seems stronger and more comfortable. SBA w/ fww to / from bathroom, slow steady gait. wears pullups. needs assist w/ changing these, s/u for jw-care. declined offer of tylenol at HS, reports she has no pain. slight grimacing w/ movement of her LLE. dressing to L hip is CDI. due to her granddaughter having a baby recently, it has been decided by Katheryn and daughter and granddaughter that SNF placement to rehab will be the best choice for now.
[2021-04-09] VITALS (9 sets, daily range): BP systolic 144–151; BP diastolic 70–87; PULSE 70–84; RESP 16–18; TEMP 36.2–36.7; O2SAT 92–98
--- NOTE | 2021-04-09 07:54 | PC.NURSE ---
Day shift: This grant writer used the phone spanish interpreter/translator this AM at approx 0745. Pt stated she has no chest pain or problems breathing. She also stated that she can get around well but its more difficult because of my hip surgery. She denies any nausea. SHe is calm and cooperative. She is also A&Ox4. VS WNL. Lung clear and HR regular. Her Persian is very limited. She was shown the call light and the RN button on it. She has been OOB and to the BR this AM using the FWW and is steady on her feet. BRAIN Tang said that she didn't need to help her and she did it all by herself. SHe also was able to put a new brief on herself. Call light in reach and bed/chair alarm is on.
[2021-04-09] MEDS: SODIUM CHLORIDE 0.9% FLUSH 10 ML IV (09:16)
[2021-04-09] MEDS: polyethylene glycoL 3350 17 GM POWD.PACK PO (09:18)
[2021-04-09] MEDS: DOCUSATE 100 MG CAPSULE PO (09:18)
[2021-04-09] MEDS: AMLODIPINE 5 MG TABLET PO (09:18)
[2021-04-09] MEDS: ENOXAPARIN 40 MG/0.4 ML SYRINGE SUBCUT (09:18)
[2021-04-09] MEDS: LOSARTAN 50 MG TABLET PO (09:18)
[2021-04-09] MEDS: ACETAMINOPHEN 325 MG TABLET 650 MG PO (09:21)
--- NOTE | 2021-04-09 10:18 | OT.IP.EVAL ---
Current Diagnoses Age-related osteoporosis with current pathological fracture, unspecified femur, initial encounter for fracture (04/03/21) Displaced intertrochanteric fracture of left femur, initial encounter for closed fracture (04/03/21) Surgery Performed Operation Date: 04/04/21 17:45 Actual Procedures p IMN IT FX Hip(Left) - Lola Walters MD Past Medical History (Last Reviewed 04/08/21 @ 08:57 by Valente Hernandez MD) Hx of hernia repair Surgical History (Last Reviewed 04/08/21 @ 08:57 by Valente Hernandez MD) Hx of hernia repair Occupational Therapy Inpatient Evaluation/Re-Eval M1 PT/OT-IP Prior Functional Status Start: 04/05/21 13:52 Freq: NEEDED Status: Active Protocol: Document 04/09/21 10:41 CGR (Rec: 04/09/21 10:58 CGR [id number]) Medical Review Prior Functional Status Medical History Reviewed Yes Communication Iraqi speaking only Mobility and Gait stated that she is independent with all mobilities and ambulation without AD Activities of Daily Living and IADL's Pt was IND in all ADLs prior to admit. Pt states that she was able to cook, clean, and perform all self care needs. Social History Household Members family,children Living Arrangements House Number of Floors (Floors) Two Floors Number of Stairs To Enter/Railing? 10 steps wide rails to enter the house 2nd level bedroom: 8 steps L rail ascending Home Environment Standard Height Toilet,Walk in Shower Home Equipment Hand Held Shower,Grab Bars Near Toilet,Grab Bars In Shower Employment Status Retired Additional Social History Comment pt stated that she lives with her grand daugther but her grand daughter has a baby and 2 other children that she has to take care of and will assist pt as much as she is able. daughter lives in [place] M1 PT/OT-IP Prior Functional Status Start: 04/09/21 10:41 Freq: NEEDED Status: Active Protocol: Document 04/09/21 10:41 CGR (Rec: 04/09/21 10:58 CGR [id number]) Medical Review Prior Functional Status Medical History Reviewed Yes Communication Iraqi speaking only Mobility and Gait stated that she is independent with all mobilities and ambulation without AD Activities of Daily Living and IADL's Pt was IND in all ADLs prior to admit. Pt states that she was able to cook, clean, and perform all self care needs. Social History Household Members family,children Living Arrangements House Number of Floors (Floors) Two Floors Number of Stairs To Enter/Railing? 10 steps wide rails to enter the house 2nd level bedroom: 8 steps L rail ascending Home Environment Standard Height Toilet,Walk in Shower Home Equipment Hand Held Shower,Grab Bars Near Toilet,Grab Bars In Shower Employment Status Retired Additional Social History Comment pt stated that she lives with her grand daugther but her grand daughter has a baby and 2 other children that she has to take care of and will assist pt as much as she is able. daughter lives in [place] M2 OT-IP Current Condition Start: 04/09/21 10:41 Freq: Status: Active Protocol: Document 04/09/21 10:41 CGR (Rec: 04/09/21 10:58 CGR [id number]) Occupational Therapy Current Condition Current Condition Evaluation Date 04/09/21 Treatment Diagnosis fall with L hip fx, s/p closed L intertrocanteric hip pinning Diagnosis Onset Date 04/03/21 M3 OT- IP Subjective and Pain Start: 04/09/21 10:41 Freq: Status: Active Protocol: Document 04/09/21 10:41 CGR (Rec: 04/09/21 10:58 CGR [id number]) OT- Subjective Occupational Therapy Visit Type Type Initial Evaluation Visit Start Time 09:40 Visit Stop Time 10:18 Total Visit Minutes 38 Notes Silicator phone used for all communication. OT Pain Assessment Pain When Pain Assessed At Rest Pain Present Pain Present Pain Reported Location left hip\ Intensity 5 Scale Used Numeric (0 - 10) Management Techniques Distraction,Modification of Treatment,Re-positioning M4 OT- IP ADL's Start: 04/09/21 10:41 Freq: Status: Active Protocol: Document 04/09/21 10:41 CGR (Rec: 04/09/21 10:58 CGR [id number]) OT [id number] Comments OT Self-Feeding Comments not meal time OT ADL-Grooming General Evaluation Grooming Ability Standby Assistance Areas Needing Assistance Face Washing Comments OT Grooming Comments standing at sink OT ADL-Oral Care General Eval Oral Care Ability Standby Assistance Comments Oral Care Comments standing at sink OT ADL-Dressing General Eval Lower Body Dressing Ability Total Assistance Areas Needing Assistance Socks Comments OT Dressing Comments Pt was unable to perform LB dressing. OT ADL-Toileting General Evaluation Toileting Ability Standby Assistance Comments OT Toileting Comments Pt had BM and urinated seated on toilet. OT ADL-Bathing Comments OT Bathing Comments not performed M5 OT- IP IADL's Start: 04/09/21 10:41 Freq: Status: Active Protocol: Document 04/09/21 10:41 CGR (Rec: 04/09/21 10:58 CGR [id number]) OT-Instrumental Activities of Daily Living Deficits IADL Deficits Identified No Deficits Home Safety Awareness Awareness of Need for Assistance at Home Good Awareness Ability to Problem Solve Emergency Able to Problem Solve Situations M6 OT- IP Functional Cognition Start: 04/09/21 10:41 Freq: Status: Active Protocol: Document 04/09/21 10:41 CGR (Rec: 04/09/21 10:58 CGR [id number]) Cognitive Factors Limiting Selfcare Function Cognitive Ability Level of Alertness Alert Patient Orientation Name,Place,Situation Attention Span Ability Capable of Focused Attention, Capable of Sustained Attention Ability to Follow Commands Able to Follow Multi-Step Commands Safety Awareness No Deficits Noted Cognitive Comments Cognitive Assessment Comments Pt was able to follow directions and use the board stacker phone for all communication without difficulty. OT- Vision and Hearing OT- Hearing Assessment OT- Hearing Assessment Hearing Impaired OT- Vision Assessment Visual Acuity WFL Visual Attentiveness WFL Occular Pursuits WFL M7 OT- IP Mobility and Balance Start: 04/09/21 10:41 Freq: Status: Active Protocol: Document 04/09/21 10:41 CGR (Rec: 04/09/21 10:58 R [id number]) OT-Transfer Assessment Sit to and From Stand Sit to and from Stand Standby Assistance,Contact Guard Assistance Transfers Transfer Ability Standby Assistance,Contact Guard Assistance Technique Transfer Destination Chair,Toilet Transfer Technique Stand Step Pivot Devices Transfer Assistive Devices Gait Belt,4 Wheeled Walker Comments Mobility Comments Pt was able to ambulate around the room with CGA to SBA OT- Balance Assessment Sitting Balance and Reactions Static Sitting Balance Ability Normal Dynamic Sitting Balance Ability Good M8 OT- IP Objective Assessments Start: 04/09/21 10:41 Freq: Status: Active Protocol: Document 04/09/21 10:41 CGR (Rec: 04/09/21 10:58 CGR [id number]) OT Gross Range of Motion Upper Extremity Range of Motion Assessment Within Functional Limits OT Strength Upper Extremity Strength Assessment Within Functional Limits Comments Strength Comments 5-/5 throughout OT- Coordination Assessment Upper Extremity Finger to Nose Test Within Functional Limits Finger Tapping Test Within Functional Limits OT-Muscle Tone Assessment Muscle Tone WNL Yes OT Sensation Assessment Edema Edema Absent M9 OT- IP Assessment and Plan Start: 04/09/21 10:41 Freq: Status: Active Protocol: Document 04/09/21 10:41 CGR (Rec: 04/09/21 10:58 CGR [id number]) OT Summary Assessment and Plan Potential Rehabilitation Potential Excellent Analytic Complexity at Evaluation Moderate Summary OT Impairments Pain,Balance,Functional Mobility,Grooming,Dressing, Toileting,Bathing,Toilet Transfers,Shower Transfers, Activity Tolerance Progress Towards Goals Slow Progress due to Pain Assessment Summary Pt presents as a moderate complexity evaluation s/p admit for fall with L hip fx. Pt underwent sx fixation and is WBAT. Pt is progressing well at this time ambulating short distances with CGA to SBA. Pt would benefit from SNF but per CM, no SNF has been found for pt at this time. Pt is planned for d/c home. Pt would benefit from continued therapy services at home and will need shower chair and FWW for home use. Pt has 18 steps to get to the second level of her home where she can stay once there as her bedroom, bathroom, and kitchen are on this floor. Pt states that her granddaughter will help as much as she is able but has a . Goals Grooming Goal Independent Dressing Goal Independent Toileting Goal Independent Bathing Goal Independent Toilet Transfer Goal Independent Shower Transfer Goal Independent Days to Meet Goals 10 Frequency of Treatment Frequency Of Treatment Once a Day Treatment Plan OT Treatment Plan ADL Training,Functional Mobility,Patient/Family Education,Discharge Planning Other Treatment Recommendations and Next shower, LB dressing with DME Treatment Focus Discharge Recommendations OT Discharge Recommendations Home with 24/ Assist Available,SNF Rehab Transportation Needs at Discharge Private Vehicle
--- NOTE | 2021-04-09 10:47 | PT.IPTN ---
Current Diagnoses Age-related osteoporosis with current pathological fracture, unspecified femur, initial encounter for fracture (04/03/21) Displaced intertrochanteric fracture of left femur, initial encounter for closed fracture (04/03/21) Surgery Performed Operation Date: 04/04/21 17:45 Actual Procedures p IMN IT FX Hip(Left) - Lola Walters MD Physical Therapy Treatment Note M2 PT-IP Current Condition Start: 04/05/21 13:52 Freq: NEEDED Status: Active Protocol: Document 04/05/21 11:45 AB (Rec: 04/05/21 14:07 AB [email or web address]) Physical Therapy Current Condition Current Condition Evaluation Date 04/05/21 Treatment Diagnosis L hip intertrochanteric fx s/p nailing; difficulty in walking Onset Date 04/03/21 Weight Bearing Status Weight Bearing Status Weight Bear as Tolerated Allowed Weight Bearing Amount (enter % LLE WBAT or #) (%) M3 PT-IP Subjective Start: 04/05/21 13:52 Freq: NEEDED Status: Active Protocol: Document 04/09/21 09:11 MB (Rec: 04/09/21 10:47 MB [id number]) Subjective Physical Therapy Visit Type Type Treatment Note Visit Start Time 09:11 Visit Stop Time 09:34 Total Visit Minutes 23 Notes Parking Cashier phone for [facility] seismic interpreter used for treatment Number of SHOEMAKER CUSTOM Visits 0 Physical Therapy Visit Comments Patient Comments Pt is agreeable to participate with PT. States that she will walk before receiving Tylenol from nsg despite PT asking if she is sure and if she would like to wait d/t reports of left LE (knee) pain with WB. Patient Goals To go to rehab Therapy Pain Assessment Pain When Pain Assessed During Exercise Pain Present Pain Present Pain Reported Location Leg leg and knee Intensity 7 Pain Management Techniques Distraction,Elevation,Re- positioning,Timing of Activity with Medications M4 PT-IP Mobility and Gait Start: 04/05/21 13:52 Freq: NEEDED Status: Active Protocol: Document 04/09/21 09:11 MB (Rec: 04/09/21 10:47 MB [id number]) PT-Transfer Assessment Sit to and From Stand Sit to and from Stand Standby Assistance,Total Assistance,Use of Upper Extremities Equipment Transfer Assistive Device Gait Belt,Front Wheeled Walker Orthotic/Prosthetic Devices or Brace: No Transfers Transfer Destination Chair Transfer Technique Gait training Transfer Ability Level of Assist Contact Guard Assistance,1 Person Assistance,Use of Upper Extremities Comments Mobility Comments Pt requires cues to reach back for the chair for stand to sit after gait. She tends to hold onto walker Gait Assessment Gait Gait Assistance Required: Contact Guard Assist,1 Person Assist Distance (Feet) 45 Able to Maintain Weight Bearing Status Yes During Gait Assistive Devices Assistive Device Gait Belt,Front Wheeled Walker Orthotic/Prosthetic Devices or Brace: No Gait Deviations General Gait Pattern Antalgic,Decreased Stride Length,Decreased Feet Clearance,Flexed Trunk,Step-to Gait Factors Limiting Gait Function Factors Limiting Gait Function Decreased Activity Tolerance, Decreased Strength,Limited Range of Motion,Pain,Poor Balance,Poor Safety Awareness Comments Gait Comments Pt presents with partial step- to gait d/t left LE weakness and pain, heavy use of UEs and slow gait. She gait trains 45 'x2 today with less assist and this is an improvement from last treatment date. PT-Balance Assessment Sitting Balance and Reactions Static Sitting Balance Ability Good Dynamic Sitting Balance Ability Good Standing Balance and Reactions Static Standing Balance Ability Fair Dynamic Standing Balance Ability Fair M5 PT-IP Objective Assessments Start: 04/05/21 13:52 Freq: NEEDED Status: Active Protocol: Document 04/05/21 11:45 AB (Rec: 04/05/21 14:07 AB [id number]) Orientation Orientation/Cognition Level of Alertness Alert Language Function Ability Hard of Hearing Safety Awareness Decreased Safety Awareness Gross Range of Motion Lower Extremity ROM Impairments LLE increase muscle guarding with ROM and c/o increase pain Strength Lower Extremity Strength Assessment Left Impaired Hip 3-/5 Knee 3-/5 Sensation Assessment Sensation Gross Sensation WNL Muscle Tone Muscle Tone WNL Yes M6 PT-IP Treatment Start: 04/05/21 13:52 Freq: NEEDED Status: Active Protocol: Document 04/09/21 09:11 MB (Rec: 04/09/21 10:47 MB [id number]) Physical Therapy Treatment Exercises Exercises Ankle Pumps Education Education Provided Safety Other Treatments Other Treatment Performed After treatment, PT speaks with CM who states that pt will likely d/c home today with grand-daughter, Ariana. PT calls grand-daughter who states that she thought that pt is discharging tomorrow tp SNF (this is what PT notes say ) and that she cannot come to family training today. PT tells Ariana that she will have CM call her. PT will return to try stairs with patient later in the morning without family training. M7 PT-IP Assessment and Plan Start: 04/05/21 13:52 Freq: NEEDED Status: Active Protocol: Document 04/09/21 09:11 MB (Rec: 04/09/21 10:47 MB [id number]) PT Summary Assessment and Plan Potential Rehabilitation Potential Good Summary Impairments Pain,ROM,Strength,Balance, Coordination,Sensation,Tone, Cognition,Bed Mobility, Transfers,Gait,Activity Tolerance Progress Towards Goals Progressing Toward Goals Assessment Summary Pt improves with transfers and gait today. PT recommendations have been skilled rehab and given pt's current functional presentation and that grand- daughter has and other children to care for, PT con' t to feel that until pt is more I with gait, skilled at d /c is most appropriate recommendation. There are 10 steps at her home. She will benefit from ongoing strengthening, gait, and balance training from skilled therapy. Goals Bed Mobility Goal Independent Transfer Goal Independent,Front Wheeled Walker Gait Goal Independent,Front Wheel Walker Gait Distance 100 Other Goals Ascend and descend 10 steps with left rail with SBA Days to Meet Goals 5 Frequency of Treatment Frequency Of Treatment Twice a Day Treatment Plan Physical Therapy Treatment Plan Bed Mobility Training,Transfer Training,Gait Training, Therapeutic Exercise,Balance Retraining,Post Op Education, Discharge Planning,Hot or Cold Pack,Neuromuscular Re-ed, Coordination Retraining,Manual Therapy Precautions Other Precautions LLE WBAT Recommendations To Nursing Amount of Assist Needed 1 Person Assist Discharge Recommendations PT Discharge Recommendations SNF Rehab Equipment Needed for Home Before FWW when d/c home Discharge Transportation Needs at Discharge Wheelchair/Cabulance
--- NOTE | 2021-04-09 10:52 | CM.DPNOTE ---
DCP/continued: Reviewed chart. Per provider patient is medically stable for discharge. Notes indicate that patient is ambulating independently with FWW. CARTOGRAPHY/MAPPING TECHNICIAN spoke with both PT and OT both believe patient will do okay at home. Notes indicate HH not covered by patient's payor (Medicaid) CARTOGRAPHY/MAPPING TECHNICIAN unclear on whether or not patient's plan is Medicaid Federal? if so patient only covered for emergencies. Placed call to patient's daughter/Ariana re: d/c plan. Ariana made aware of patient being medically stable for discharge today. Daughter reports that a family member will make an attempt to do manager intensive care training today prior to d/c. If family unable to be here until this evening daughter is requesting that instructions be provided. CARTOGRAPHY/MAPPING TECHNICIAN discussed both with PT/OT. Daughter plans to check in with her spouse on what time they can be here today to pick patient up. Daughter intends to call CM team back with time. P: Home today. Daughter to follow up with outpatient therapy this week for continued therapy for patient as outpatient. ISABEL
--- NOTE | 2021-04-09 11:49 | PC.NURSE ---
Day shift: Pt worked with Clarissa in PT and worked on the stairs while using the phone full time staff interpreter. Per Clarissa the Pt is upset that she is not going to a SNF and that she was told she was going home today.
--- NOTE | 2021-04-09 12:04 | PT.IPTN ---
Current Diagnoses Age-related osteoporosis with current pathological fracture, unspecified femur, initial encounter for fracture (04/03/21) Displaced intertrochanteric fracture of left femur, initial encounter for closed fracture (04/03/21) Surgery Performed Operation Date: 04/04/21 17:45 Actual Procedures p IMN IT FX Hip(Left) - Lola Walters MD Physical Therapy Treatment Note M2 PT-IP Current Condition Start: 04/05/21 13:52 Freq: NEEDED Status: Active Protocol: Document 04/05/21 11:45 AB (Rec: 04/05/21 14:07 AB [email or web address]) Physical Therapy Current Condition Current Condition Evaluation Date 04/05/21 Treatment Diagnosis L hip intertrochanteric fx s/p nailing; difficulty in walking Onset Date 04/03/21 Weight Bearing Status Weight Bearing Status Weight Bear as Tolerated Allowed Weight Bearing Amount (enter % LLE WBAT or #) (%) M3 PT-IP Subjective Start: 04/05/21 13:52 Freq: NEEDED Status: Active Protocol: Document 04/09/21 11:04 MB (Rec: 04/09/21 12:02 MB [id number]) Subjective Physical Therapy Visit Type Type Treatment Note Visit Start Time 11:03 Visit Stop Time 11:49 Total Visit Minutes 46 Notes Arbor Press Operator phone for [employer] jewelry inspector used for treatment Number of FITTER TYPE BAR AND SEGMENT Visits 0 Physical Therapy Visit Comments Patient Comments Pt reports that she took too many pills at once and that she is dizzy, weak and tired. PT tells her that PT will communicate to nsg. She is concerned about discharge and states that it is serious. She would like to speak with someone about it. PT lets her know that PT will speak with CM about coming by to talk with her. BP and HR in RUE in sittin/76, 80. PT encourages pt to let PT know if she needs to stop during PT . Patient Goals To go to rehab Therapy Pain Assessment Pain When Pain Assessed During Mobility Pain Present Pain Present Pain Reported Location Leg leg and knee Intensity 7 Pain Management Techniques Distraction,Elevation,Re- positioning M4 PT-IP Mobility and Gait Start: 04/05/21 13:52 Freq: NEEDED Status: Active Protocol: Document 04/09/21 11:04 MB (Rec: 04/09/21 12:02 MB [id number]) PT-Transfer Assessment Sit to and From Stand Sit to and from Stand Standby Assistance,1 Person Assistance,Use of Upper Extremities Equipment Transfer Assistive Device Gait Belt,Front Wheeled Walker Orthotic/Prosthetic Devices or Brace: No Transfers Transfer Destination Toilet Transfer Technique Gait training Transfer Ability Level of Assist Contact Guard Assistance,1 Person Assistance,Use of Upper Extremities Comments Mobility Comments Cues to push up from the chair and to reach back for it to sit. Pt states that she needs to go to the BR. She is superv assist with toileting. MOLD CARRIER arrives to assist PT and pt to steps with w/c. Gait Assessment Gait Gait Assistance Required: Contact Guard Assist,1 Person Assist Distance (Feet) 10 Able to Maintain Weight Bearing Status Yes During Gait Assistive Devices Assistive Device Gait Belt,Front Wheeled Walker Orthotic/Prosthetic Devices or Brace: No Gait Deviations General Gait Pattern Antalgic,Decreased Stride Length,Decreased Feet Clearance,Flexed Trunk,Step-to Gait Factors Limiting Gait Function Factors Limiting Gait Function Decreased Activity Tolerance, Decreased Strength,Limited Range of Motion,Pain,Poor Balance,Poor Safety Awareness Comments Gait Comments Gait training chair to BR, BR to hallway, w/c to steps and back, w/c to chair: 10', 30', 5'x2, 10'x1. Flexed posture with decreased step-length and foot clearance, partial step- to pattern favoring LLE. Stair Climbing Assessment Evaluation Level of Assist On Stairs Contact Guard Assistance,1 Person Assistance Devices Stair Climbing Assistive Devices Left Railing,Right Railing Technique/Endurance Stair Climbing Direction Ascend and Descend Stair Climbing Technique Step to Step Number of Steps Climbed 3 Stair Climbing Set # Repetitions (reps) 2 Comments Stair Climbing Comments Cues for stepping and to perform twice PT-Balance Assessment Sitting Balance and Reactions Static Sitting Balance Ability Good Dynamic Sitting Balance Ability Good Standing Balance and Reactions Static Standing Balance Ability Fair Dynamic Standing Balance Ability Fair M5 PT-IP Objective Assessments Start: 04/05/21 13:52 Freq: NEEDED Status: Active Protocol: Document 04/05/21 11:45 AB (Rec: 04/05/21 14:07 AB [id number]) Orientation Orientation/Cognition Level of Alertness Alert Language Function Ability Hard of Hearing Safety Awareness Decreased Safety Awareness Gross Range of Motion Lower Extremity ROM Impairments LLE increase muscle guarding with ROM and c/o increase pain Strength Lower Extremity Strength Assessment Left Impaired Hip 3-/5 Knee 3-/5 Sensation Assessment Sensation Gross Sensation WNL Muscle Tone Muscle Tone WNL Yes M6 PT-IP Treatment Start: 04/05/21 13:52 Freq: NEEDED Status: Active Protocol: Document 04/09/21 11:04 MB (Rec: 04/09/21 12:02 MB [id number]) Physical Therapy Treatment Education Education Provided Safety Other Treatments Other Treatment Performed Pt states that she thinks she has a RW at home. PT asks pt if she has any questions for the nurse when he is nearby and PT is standing with jewelry inspector phone and pt states no. PT then speaks with CM about checking in with pt about d/c M7 PT-IP Assessment and Plan Start: 04/05/21 13:52 Freq: NEEDED Status: Active Protocol: Document 04/09/21 11:04 MB (Rec: 04/09/21 12:02 MB [id number]) PT Summary Assessment and Plan Potential Rehabilitation Potential Good Summary Impairments Pain,ROM,Strength,Balance, Coordination,Sensation,Tone, Cognition,Bed Mobility, Transfers,Gait,Activity Tolerance Progress Towards Goals Progressing Toward Goals Assessment Summary Pt reports increased pain during this PT treatment yet rates it the same. She reports feeling dizzy and tired from medications. She is agreeable to try the stairs. She requires CGA and cues for stairs and superv for toileting. Gait distance is limited by pain. Recommend con 't PT at d/c and 24 hour assist available. Goals Bed Mobility Goal Independent Transfer Goal Independent,Front Wheeled Walker Gait Goal Independent,Front Wheel Walker Gait Distance 100 Other Goals Ascend and descend 10 steps with left rail with superv Days to Meet Goals 5 Frequency of Treatment Frequency Of Treatment Twice a Day Treatment Plan Physical Therapy Treatment Plan Bed Mobility Training,Transfer Training,Gait Training, Therapeutic Exercise,Balance Retraining,Post Op Education, Discharge Planning,Hot or Cold Pack,Neuromuscular Re-ed, Coordination Retraining,Manual Therapy Precautions Other Precautions LLE WBAT Recommendations To Nursing Amount of Assist Needed 1 Person Assist Discharge Recommendations PT Discharge Recommendations Home with 24/7 Assist Available,Home Health Equipment Needed for Home Before Pt states that she has a Discharge walker at home, CM can check with grand-daughter as needed Transportation Needs at Discharge Private Vehicle
--- NOTE | 2021-04-09 12:17 | PM.DS.1 ---
History of Present Illness History of Present Illness Chief complaint: hip pain Narrative: Per SARINA Goddard: Shiraz Vizcaino is an 85-year-old Maldivian only speaking female with essential hypertension and was apparently in her usual state of health when she fell outside in her yard.? Her granddaughter Vida Flores is translating for the patient.? She stated that the patient was standing on a grassy slope and was reaching for an apple off of 1 of the trees and the yard and apparently fell.? She did not hit her head nor her ribs.? She denies dizziness, swallowing problems, headaches, chest pain, nausea and vomiting, diarrhea or constipation.? She does endorse having chronic urinary urgency, tingling in her hands and feet and bed circulation of her legs causing swelling occasionally. In the emergency department she was found to have a left-sided closed intertrochanteric nondisplaced fracture.? Chest x-ray was negative.? Patient is afebrile, blood pressure 217/103, heart rate 92, respiratory rate 20, oxygen saturation 96% on room air, she weighs 68 kg with a BMI of 26.6.? Her WBC is slightly elevated at 11.7, RBC 5.3, hemoglobin 15.6, hematocrit 48.3, platelet count 158, sodium is 140, potassium 4.5, chloride 106, CO2 25, BUN 30, creatinine 1.0 with a GFR of 53, glucose 136, liver enzymes are within normal limits, COVID 19 PCR is negative.? I have ordered a troponin and a UA both of which are pending. Discharge Providers Provider Date of admission: 04/03/21 22:29 Discharge Date: 04/09/21 Consults: 04/03/21 23:31 Consult to Physician Routine Comment: Consulting Provider: Lola Walters Reason for consultation: Closed hip intertrochanteric fracture Has provider been notified: Yes 04/04/21 21:58 Consult to Physical Therapy Evaluate & Treat Comment: wbat lle Physician Instructions: Evaluate and Treat Consult to Respiratory Therapy Evaluate & Treat Comment: Physician Instructions: Evaluate and treat 04/07/21 15:27 Consult to Occupational Therapy Evaluate & Treat Comment: Physician Instructions: Evaluate and treat 04/07/21 15:31 Consult to Home Health Routine Comment: Reason For Exam: Home Health RN, O.T, P.T. 04/09/21 12:15 Consult to Home Health Routine Comment: Reason For Exam: FWW for Home Use Discharge provider: Santiago Wilkins DO Summary Hospital Course Discharge Diagnosis: 1.? Closed left intertrochanteric hip fracture, acute, present on admission, likely pathologic 2. Essential hypertension, poorly controlled likely due to pain, present on admission 3. asymptomatic bacteruia, less likely acute cystitis. Hospital Course: This is an 85-year-old female with the past medical history of hypertension who was admitted with a left intertrochanteric femur fracture. This fracture was likely pathologic secondary to mechanism of her fall. She underwent surgical repair and headed uncomplicated postoperative course. The she initially was planned for residential facility, however did not receive insurance authorization. Ultimately she did well enough to be discharged home with family prior to insurance authorization. She will follow-up with Orthopedic surgery as an outpatient. She will continue on Lovenox for 28 days total per surgery recommendations for DVT prophylaxis. With regards to her hypertension, amlodipine 5 mg daily was added in addition to her home losartan. Her blood pressures were controlled on the day of discharge. Patient had positive urine cultures and a positive UA, however no symptoms. She was treated initially with 3 days of antibiotics including ceftriaxone and cefazolin for her operative interventions which will cover low probability of acute cystitis. Exam Vital Signs (past 8 hours): - 04/09/21 05:43 04/09/21 07:00 04/09/21 08:04 Temperature 97.2 F L 97.9 F Pulse Rate 70 78 Respiratory Rate 16 16 Blood Pressure 145/70 H 149/79 H Pulse Oximetry 93 92 93 04/09/21 09:08 Temperature Pulse Rate 78 Respiratory Rate 16 Blood Pressure Pulse Oximetry 93 Oxygen Delivery Method Room Air Oxygen Flow Rate 0 Narrative Exam Narrative: Pleasant female lying in bed who appears comfortable Resp Other:?Lungs clear to auscultation Cardio Other:?Cardiac exam: Regular rate and rhythm normal S1-S2 GI Other:?Abdomen:? Soft nontender nondistended Skin Other:?Left leg with chronic venous stasis changes Extrem Other:?L leg dressing c/d/i. Objective Labs Result Diagrams: 04/08/21 05:27 04/04/21 04:40 [facility] History Hx of hernia repair Family History Mother Breast CA Father Medical history unknown Social History household members: family and children Smoking Status: Never smoker Discharge Plan Discharge Plan Patient Disposition: Home Provider Discharge Comment: You were admitted to the hospital with a fracture. You underwent surgery. Progressed with PT. You will need to continue outpatient PT. Pain control at home with tylenol and motrin if needed. New BP medication added. These can be picked up tomorrow along with medication / injection recommended by orthopedics to prevent blood clots. Please follow up with orthopedics clinic as an outpatient. Discharge orders & Medications Prescriptions: New amlodipine [Norvasc] 5 mg Tablet 5 mg PO DAILY 30 Days Qty: 30 RF: 0 enoxaparin 40 mg/0.4 mL syringe 40 mg SUBCUT DAILY 23 Days Qty: 9.2 RF: 0 Continued losartan 50 mg Tablet 50 mg PO DAILY RF: 0 aspirin 81 mg Tablet 81 mg PO Q OTHER DAY RF: 0 Follow up/Referrals: Lola Walters MD [Physician] - (10-14 days for postoperative visit) Diet/Activity/Treatments Diet: Diet as Tolerated Activity: As tolerated Visit Report/Discharge Packet Instructions: How to Give a Subcutaneous Injection, DI for Hip Fracture, How to Prevent Falls Stand Alone Forms: Surgery Discharge Quality VTE Deep Vein Thrombosis/Pulmonary Embolism Present on Admission: No
--- NOTE | 2021-04-09 13:55 | PC.NURSE ---
Day shift: Pt sitting in chair w/ no c/o or s/s of pain or discomfort. Had a shower this afternoon and tolerated well. Left hip surgery dressing checked and it remains intact.
--- NOTE | 2021-04-09 14:02 | PC.NURSE ---
Day shift: Pt's home medications (in a plastic pouch) that were down in pharmacy have been given back to the Pt. Placed in the bottom of her red bag that has some of her belongings already in it. (at approx 1400)
--- NOTE | 2021-04-09 16:15 | CM.DPC ---
DCP/continued: Received notification from [facility] staff that patient requesting to speak with CM team. DYE FEEDER and CM/Magda met with patient using the cook taco system. Patient reports that she has spoken with her granddaughter/Ariana and wanted to let us know that family is planning on picking patient up today around 6:00pm. Patient seen by both PT and OT today and did well. Therapy in agreement with patient's d/c home with family support. Order obtained for FWW for home use. Patient reports that she currently does not have one and she is unclear on whether her family has obtained one? Patient reports that she has no additional d/c planning needs. CM team hopeful that therapy and nursing will provide patient with education related to daily exercises, restrictions, etc... In addition, CM team provided hand out for outpatient therapy in [facility]. RN updated on pick up truck driver time. P: Home with family support this evening. Patient ambulating with FWW today and doing much better. Family to provide transport. ISABEL
== END 2021-04-09 18:15 | disposition home or self-care (01) | DRG 309 ==
LOC: ED 22:12 → AC 22:32
PROVIDERS: Internal Medicine; Orthopaedic Surgery Foot and Ankle Surgery; Admitting Provider Nurse Practitioner Family; Emergency Provider Emergency Medicine; Referring Provider Emergency Medicine; Visit Provider Nurse Practitioner Family
PROC: 0QS736Z Reposition Left Upper Femur with Intramedullary Internal Fixation Device, Percutaneous Approach (ICD-10-PCS; CPT 27245; principal; 2021-04-04 17:45)
DX: M80.052A Age-related osteoporosis with current pathological fracture, left femur, initial encounter for fracture (principal); R82.71 Bacteriuria; I10 Essential (primary) hypertension; Z20.822 Contact with and (suspected) exposure to COVID-19
CPT/HCPCS: 36415; 71045; 73502; 76000; 80048; 80053; 80076; 81003; 81015; 82550; 83735; 84484; 85025; 85027; 86850; 86900; 86901; 87077; 87086; 87186; 87635; 93005; 94760; 97110; 97116; 97162; 97166; 97530; 97535; 99284; C9803; J0690; J0696; J1170; J1650; J2250; J2405; J2704; J3010